=== PATIENT | female | born 1945 | race Caucasian/White ===

== ENCOUNTER 2018-07-01 09:50 | Day surgery (SDC) | payer MEDICARE ==
[2018-06-26 10:00] VITALS: BMI 26.4
[~2018-07-01 09:50] MED LIST: LACTATED RINGERS 1,000 ML IV SCH; LIDOCAINE 1% 20 ML VIAL (10MG/ML) FOR IV START INTRADERMA PRN
[2018-07-01 10:07] VITALS: TEMP 97.8
[2018-07-01] MEDS ORDERED: LACTATED RINGERS 1,000 ML IV ONE (10:09)
[2018-07-01] MEDS ORDERED: PROPOFOL 10 MG/ML 20 ML VIAL IV ONE (11:21)
--- NOTE | 2018-07-01 11:43 | P.PCN ---
Date of Procedure: 07/01/18 Procedure(s) Performed: Brief history: Patient is a pleasant 73-year-old white female scheduled for an elective upper endoscopy as well as colonoscopy as a part of evaluation of iron deficiency anemia. Recently she was noted to have a hemoglobin of 7.9 g/dL and iron indices consistent with iron deficiency anemia. She is been complaining of intermittent rectal bleeding for the last few weeks. Procedure performed: Esophagogastroduodenoscopy with biopsy Colonoscopy with biopsy and the tattooing with Priyanka ink Preoperative diagnosis: Iron deficiency anemia Anesthesia: MAC Procedure: After informed consent was obtained from the patient was brought into the endoscopy unit and IV sedation was administered by anesthesia under continuous monitoring. Initially upper endoscopy was done. The Olympus GF 160 video endoscope was inserted inserted into the mouth and esophagus intubated without any difficulty and was gradually advanced into the stomach and duodenum and carefully examined. The bulb and second part of the duodenum appeared normal. The scope was then withdrawn into the stomach adequately insufflated with air and upon careful examination the antrum had multiple scattered erosions consistent with gastritis and biopsies were done from this area. The body, cardia and fundus appeared normal. The scope was then withdrawn into the esophagus. The GE junction was located at 40 cm to the incisors. It appeared reguwith 2 superficial erosions consistent with LA grade a reflux esoph agitis.est of the esophagus appeared normal. Patient tolerated the procedure well. At this time the patient continued to remain sedation. Initial digital rectal examination was normal. Olympus CF 160 video colonoscope was then inserted into the rectum and gradually advanced to the cecum without any difficulty. Careful examination was performed as the scope was gradually being withdrawn. The prep was excellent. The cecum, appeared normal. In the mid ascending colon there was a semicircumferential ulcerated mass that was biopsied and Priyanka ink was injected for tattooing in the distal part of the mass. The rest of the ascending colon, transverse colon, descending colon, sigmoid colon and rectum appeared normal. Retroflexion was performed in the rectum and no lesions were noted. Patient tolerated the procedure well. Impression: 1. Upper endoscopy revealed antral erosive gastritis and mild esophagitis 2. Colonoscopy revealed a semicircumferential ulcerated mass in the mid asce nding colon status post biopsies and tattooing with Priyanka ink. Rest of the colon appeared normal Recommendations: Findings of this examination were discussed with the patient as well as a family. She was advised to follow with the biopsy results. She will be seen in office in 3-4 days.
[2018-07-01 11:53] VITALS: RESP 16
[2018-07-01 12:14] VITALS: BP 113/67; PULSE 97
== END 2018-07-01 12:54 | disposition home or self-care (01) ==
LOC: ORWHC2ENDO 09:50
PROVIDERS: ATTEND Internal Medicine Gastroenterology
DX: C18.2 Malignant neoplasm of ascending colon (principal); K29.50 Unspecified chronic gastritis without bleeding; K20.9 Esophagitis, unspecified; I10 Essential (primary) hypertension; Z79.899 Other long term (current) drug therapy; Z88.0 Allergy status to penicillin; Z88.2 Allergy status to sulfonamides
CPT/HCPCS: 88305; 45380; 43239; 45381; J2704; 44404

== ENCOUNTER → 2018-07-03 | Outpatient (CLI) | payer MEDICARE ==
[2018-07-03 10:49] LABS: Blood Urea Nitrogen 11 mg/dL (7-17)
--- NOTE | 2018-07-03 12:28 | CT ---
EXAMINATION TYPE: CT abdomen pelvis w con DATE OF EXAM: 07/03/2018 COMPARISON: None HISTORY: Colon mass. pain. CT DLP: 515.3 mGycm CONTRAST: CT scan of the abdomen and pelvis is performed with Oral Contrast and with IV Contrast, patient injec francisco with 100 mL of Isovue 300. FINDINGS: LUNG BASES-: No visible nodule. No infiltrate. LIVER/GB: No calcified gallstones. 2 hypoattenuating lesions measuring less than 1 cm left hepatic lobe may reflect cysts although are too small to characterize. No definite solid hepatic lesions. Akil iary tree is of normal caliber. PANCREAS: No inflammation. No distinct mass. SPLEEN: No splenic enlargement. No lesion seen. ADRENALS: No nodule. No thickening. KIDNEYS/BLADDER: No hydronephrosis. No nephrolithiasis. No distinct renal mass. Urinary bladder g rossly unremarkable. BOWEL: Normal appendix. Normal bowel caliber. No inflammation. There is masslike density noted with in the cecum direct visualization is recommended to exclude malignancy. Small hiatal hernia. GENITAL ORGANS: No gross abnormality. LYMPH NODES: No greater than 1cm abdominal or pelvic lymph nodes are appreciated. AORTA: No significant abnormality. OSSEOUS STRUCTURES: No significant abnormality is seen. OTHER: No significant additional abnormality is seen. IMPRESSION: 1. There is masslike density noted within the cecum direct visualization is recommended to exclude ma lignancy.
== END | disposition home or self-care (01) ==
LOC: RADCTMAIN 09:51
PROVIDERS: ATTEND Internal Medicine Gastroenterology
DX: R19.09 Other intra-abdominal and pelvic swelling, mass and lump (principal)
CPT/HCPCS: 82565; 84520; 74177; 36415; Q9967

== ENCOUNTER → 2018-07-07 | Outpatient (CLI) | payer MEDICARE ==
[2018-07-07 17:56] LABS: Anisocytosis Slight; HCT 25.8 % (34.0-46.0); HGB 7.4 gm/dL (11.4-16.0); Hypochromasia Marked; MCH 21.3 pg (25.0-35.0); MCHC 28.6 g/dL (31.0-37.0); MCV 74.6 fL (80.0-100.0); Mean Platelet Volume 6.5; Microcytosis Slight; Platelet Count 376 k/uL (150-450); Poikilocytosis Slight; RBC 3.46 m/uL (3.80-5.40); WBC 7.4 k/uL (3.8-10.6)
[2018-07-07 18:14] LABS: Potassium 4.2 mmol/L (3.5-5.1)
== END ==
LOC: LABPAT 16:48
PROVIDERS: ATTEND Surgery
DX: Z01.818 Encounter for other preprocedural examination (principal); Z01.812 Encounter for preprocedural laboratory examination; C18.9 Malignant neoplasm of colon, unspecified
CPT/HCPCS: 36415; 80051; 85027; 86850; 86900; 86901; 93005

== ENCOUNTER 2018-07-17 09:17 | Inpatient (IN) | payer MEDICARE ==
[2018-07-14 15:59] VITALS: BMI 26.9
[~2018-07-17 09:17] MED LIST changes: +CLINDAMYCIN 900 MG in DEXTROSE 5% IN WATER 50 ML IVPB ONE; +GENTAMICIN 300 MG in SODIUM CHLORIDE 0.9% 100 ML IVPB ONE; +HEPARIN SODIUM,PORCINE 5,000 UNIT/ML 1 ML VIAL SQ ONE; -LACTATED RINGERS 1,000 ML IV SCH; -LIDOCAINE 1% 20 ML VIAL (10MG/ML) FOR IV START INTRADERMA PRN
[2018-07-17] MEDS ORDERED: LACTATED RINGERS 1,000 ML IV ONE ×3 (10:17→16:12)
[2018-07-17] MEDS ORDERED: ONDANSETRON 4 MG/2 ML VIAL IVP ONE (10:17)
[2018-07-17] MEDS ORDERED: DEXAMETHASONE SOD PHOSPHATE 10 MG/ML 1 ML VIAL IV ONE (10:18)
[2018-07-17 10:37] LABS: Anisocytosis Slight; Basophils # (A) 0.1 k/uL (0-0.2); Basophils % (A) 1 %; Eosinophils # (A) 0.2 k/uL (0-0.7); Eosinophils % (A) 2 %; HCT 32.2 % (34.0-46.0); Hypochromasia Marked; Lymphocytes # (A) 1.1 k/uL (1.0-4.8); Lymphocytes % (A) 15 %; MCH 21.8 pg (25.0-35.0); MCHC 28.9 g/dL (31.0-37.0); MCV 75.6 fL (80.0-100.0); Mean Platelet Volume 7.1; Microcytosis Slight; Monocytes # (A) 0.5 k/uL (0-1.0); Monocytes % (A) 7 %; Neutrophils # (A) 5.1 k/uL (1.3-7.7); Neutrophils % (A) 70 %; Platelet Count 426 k/uL (150-450); Poikilocytosis Slight; RBC 4.26 m/uL (3.80-5.40); RDW 17.3 % (11.5-15.5); WBC 7.2 k/uL (3.8-10.6)
[2018-07-17 10:40] LABS: HGB 9.3 gm/dL (11.4-16.0)
--- NOTE | 2018-07-17 13:04 | P.GSHP ---
History of Present Illness H&P Date: 07/17/18 Chief Complaint: Right colon cancer This is a 73-year-old female who was recently diagnosed with right colon cancer. Patient presents today for laparoscopic right colectomy. Patient's rhythm risks of surgery including possible colostomy and anastomotic leak Past Medical History Past Medical History: Cancer, Hypertension Additional Past Medical History / Comment(s): IRON DEFICIENCY ANEMIA, STATES CANCER MASS IN COLON., HX BLOOD IN STOOL. History of Any Multi-Drug Resistant Organisms: None Reported Past Surgical History: Appendectomy, Hysterectomy, Orthopedic Surgery, Tonsillectomy Additional Past Surgical History / Comment(s): HIP SURGERY AGE 12 R/T OSTEOMYELITIS., TUBAL SURGERY., VARICOSE VEINS. Past Anesthesia/Blood Transfusion Reactions: Postoperative Nausea & Vomiting (PONV) Additional Past Anesthesia/Blood Transfusion Reaction / Comment(s): HX OF BLOOD TRANSFUSION WITH TUBAL - NO REACTION. SISTER = PONV Past Psychological History: No Psychological Hx Reported Smoking Status: Never smoker Past Alcohol Use History: None Reported Past Drug Use History: None Reported - Past Family History Mother Family Medical History: Cancer Additional Family Medical History / Comment(s): BREAST CANCER Father Family Medical History: Cancer Additional Family Medical History / Comment(s): PROSTATE CANCER WITH BONE METS. Sister(s) Family Medical History: Cancer Additional Family Medical History / Comment(s): BREAST CANCER Medications and Allergies Home Medications Medication Instructions Recorded Confirmed Type Multivitamins, Thera [Multivitamin 1 tab PO DAILY 06/26/18 07/17/18 History (formulary)] amLODIPine [Norvasc] 5 mg PO BID 06/26/18 07/17/18 History Ferrous Sulfate [Iron] 325 mg PO DAILY 07/14/18 07/17/18 History Allergies Allergy/AdvReac Type Severity Reaction Status Date / Time Penicillins Allergy Swelling Verified 07/17/18 09:54 Sulfa (Sulfonamide Allergy Unknown Verified 07/17/18 09:54 Antibiotics) Surgical - Exam Vital Signs Temp Pulse Resp BP Pulse Ox 98.3 F 109 H 16 184/74 98 07/17/18 10:16 07/17/18 10:16 07/17/18 10:16 07/17/18 10:16 07/17/18 10:16 - General well developed, well nourished, no distress - Eyes PERRL - ENT normal pinna - Neck no masses - Respiratory normal expansion - Cardiovascular Rhythm: regular - Abdomen Abdomen: soft, non tender Results - Labs 07/17/18 10:13 07/17/18 10:13 Abnormal Lab Results - Last 24 Hours (Table) 07/17/18 Range/Units 10:13 Hgb 9.3 L D (11.4-16.0) gm/dL Hct 32.2 L (34.0-46.0) % MCV 75.6 L (80.0-100.0) fL MCH 21.8 L (25.0-35.0) pg MCHC 28.9 L (31.0-37.0) g/dL RDW 17.3 H (11.5-15.5) % Diabetes panel 07/17/18 Range/Units 10:13 Potassium 4.0 (3.5-5.1) mmol/L Pituitary panel 07/17/18 Range/Units 10:13 Potassium 4.0 (3.5-5.1) mmol/L Adrenal panel 07/17/18 Range/Units 10:13 Potassium 4.0 (3.5-5.1) mmol/L Assessment and Plan Assessment: Right colon cancer. We will perform laparoscopic right colectomy.
[2018-07-17] MEDS ORDERED: PROPOFOL 10 MG/ML 20 ML VIAL IV ONE (13:55)
[2018-07-17] MEDS ORDERED: GLYCOPYRROLATE 0.2 MG/ML 2 ML VIAL ONE (13:55)
[2018-07-17] MEDS ORDERED: SUCCINYLCHOLINE CHLORIDE 100 MG/5 ML SYR IV ONE (13:55)
[2018-07-17] MEDS ORDERED: ROCURONIUM BROMIDE 10 MG/ML 10 ML VIAL IV ONE (13:55)
[2018-07-17] MEDS ORDERED: MORPHINE SULFATE 10 MG/ML SYRINGE ONE (13:55)
[2018-07-17] MEDS ORDERED: NEOSTIGMINE 1 MG/ML 10 ML VIAL ONE (13:55)
[2018-07-17] MEDS ORDERED: LIDOCAINE 1% INJ 10MG/ML (20 ML MDV) ONE (13:55)
[2018-07-17] MEDS ORDERED: ePHEDrine SULFATE/0.9% NACL/PF 50 MG/5 ML SYRINGE IV ONE (13:55)
[2018-07-17] MEDS ORDERED: fentaNYL (PF) 50 MCG/ML 2 ML AMP ONE (13:55)
[2018-07-17] MEDS ORDERED: MIDAZOLAM 2 MG/2 ML VIAL ONE (13:55)
[2018-07-17] MEDS ORDERED: BUPIVACAIN-EPI 0.5%-1:200,000 30 ML VIAL SQ ONE (14:17)
[2018-07-17] MEDS ORDERED: METOCLOPRAMIDE 5 MG/ML 2 ML VIAL IVP PRN (15:21)
[2018-07-17] MEDS ORDERED: ONDANSETRON 4 MG/2 ML VIAL IVP PRN (15:21)
[2018-07-17] MEDS ORDERED: BENZOCAINE/MENTHOL LOZENG 1 EACH LOZENGE MUCOUS MEM PRN (15:21)
[2018-07-17] MEDS ORDERED: HYDROmorphone 1 MG/ML 1 ML SYRINGE IVP PRN (15:21)
--- NOTE | 2018-07-17 15:21 | P.OP ---
Date of Procedure: 07/17/18 Preoperative Diagnosis: Right colon cancer Postoperative Diagnosis: Right colon cancer Extensive adhesions Procedure(s) Performed: Diagnostic laparoscopy Right colectomy Extensive lysis of adhesions Partial omentectomy Anesthesia: TEO Surgeon: Rigoberto Boyce Estimated Blood Loss (ml): 40 Pathology: other (Right colon, omentum) Condition: stable Disposition: PACU Description of Procedure: The patient's placed on the operative table in the supine position. She received general anesthesia. Her abdomen was prepped and draped in usual sterile fashion. A Veress needle was placed in the left upper quadrant and then the abdomen was insufflated after adequate insufflation a 5 mm trocar was placed in the supraumbilical position. The patient had a previous low midline incision. The camera was placed through the laparoscope. There adhesions noted in the right lower quadrant and along the low midline incision. The adhesions were quite extensive. At this point decided to perform an open right colectomy. The trochars withdrawn. A periumbilical midline incision was made. And then using with cautery the abdominal wall was divided. Approximately 20 minutes of operative time used to lyse adhesions. The right colon was mobilized. The colon cancer was visualized just proximal to the tattoo roseamrie on the colon. There were adhesions in the pelvis attached to the small bowel. These were lysed with sharp dissection. The terminal ileum and right colon was fully mobilized. At this point the terminal ileum was transected with a GI stapler and then the transverse colon was transected with a GI stapler. Using the Enseal device the mesentery of the bowel was divided. A portion of omentum was also transected and sent to pathology. A [id number] functional end-to-end staple anastomosis was then created using the CHYNA and TA stapler. 3-0 GI silk sutures placed as a crotch stitch. The abdomen was irrigated there is no bleeding seen. The fascia was closed in looped #1 PDS suture. Skin was closed marcella. Silverlon dressing was applied. Patient top she will was sent to recovery in stable condition.
[2018-07-17] MEDS: HYDROmorphone 1 MG/ML 1 ML SYRINGE IVP ONE ×2 (15:28→15:34)
[2018-07-17] MEDS: D5-0.45% NACL WITH KCL 20MEQ/L 1,000 ML IV SCH ×2 (17:02→20:27)
[2018-07-17] MEDS: FAMOTIDINE 20 MG/2 ML VIAL IV SCH (20:27)
[2018-07-18] MEDS: PANTOPRAZOLE 40 MG/10 ML VIAL IVP SCH ×3 (04:18→22:24)
[2018-07-18] MEDS: D5-0.45% NACL WITH KCL 20MEQ/L 1,000 ML IV SCH ×3 (04:26→22:17)
[2018-07-18 07:38] LABS: African American GFR (CKD) >90 (>60 ml/min/1.73 sqM); Anion Gap 6 mmol/L; Blood Urea Nitrogen 9 mg/dL (7-17); Calcium 9.3 mg/dL (8.4-10.2); Carbon Dioxide 22 mmol/L (22-30); Chloride 109 mmol/L (98-107); Glucose 139 mg/dL (74-99); Potassium 4.7 mmol/L (3.5-5.1); Sodium 137 mmol/L (137-145)
[2018-07-18 07:54] LABS: Anisocytosis Slight; Basophils % (A) 0 %; Eosinophils % (A) 0 %; HCT 27.5 % (34.0-46.0); Hypochromasia Marked; Lymphocytes # (A) 0.7 k/uL (1.0-4.8); Lymphocytes % (A) 4 %; MCH 21.7 pg (25.0-35.0); MCHC 28.2 g/dL (31.0-37.0); Mean Platelet Volume 6.7; Microcytosis Slight; Monocytes # (A) 0.8 k/uL (0-1.0); Monocytes % (A) 5 %; Neutrophils % (A) 89 %; Platelet Count 302 k/uL (150-450); RBC 3.57 m/uL (3.80-5.40); RDW 17.1 % (11.5-15.5); WBC 14.6 k/uL (3.8-10.6)
[2018-07-18 08:00] LABS: HGB 7.8 gm/dL (11.4-16.0)
--- NOTE | 2018-07-18 08:07 | P.OP ---
Date of Procedure: 07/17/18
[2018-07-18] MEDS: ALVIMOPAN 12 MG CAPSULE PO SCH ×2 (08:38→22:17)
[2018-07-18] MEDS: amLODIPine 5 MG TAB PO SCH ×2 (08:38→22:17)
[2018-07-18] MEDS: HEPARIN SODIUM,PORCINE 5,000 UNIT/ML 1 ML VIAL SQ SCH ×2 (08:38→22:17)
[2018-07-18] MEDS: FAMOTIDINE 20 MG/2 ML VIAL IV SCH (08:38)
--- NOTE | 2018-07-18 09:02 | P.PN ---
Subjective Progress Note Date: 07/18/18 Principal diagnosis: Right colon cancer The patient status post diagnostic laparoscopy with right colectomy lysis of adhesions for right colon cancer. She's doing quite well. She has minimal pain. Objective - Vital Signs Vital signs: Vital Signs Temp 98.4 F 07/18/18 07:32 Pulse 81 07/18/18 07:32 Resp 15 07/18/18 07:32 BP 126/58 07/18/18 07:32 Pulse Ox 100 07/18/18 07:32 Intake & Output 07/17/18 07/18/18 07/18/18 18:59 06:59 18:59 Intake Total 2000 1500 Output Total 130 2150 Balance 1870 -650 Intake: IV 2000 Intake, IV Titration 1300 Amount D5-0.45% NaCl with KCl 1300 20Meq/l 1,000 ml @ 125 mls/hr IV .Q8H [facility] Rx#: [id number] Oral 200 Output: Urine 100 2150 Estimated Blood Loss 30 Other: Voiding Method Indwelling Catheter Indwelling Catheter - Constitutional General appearance: Present: average body habitus, cooperative - Cardiovascular Rhythm: regular - Gastrointestinal Gastrointestinal Comment(s): Abdomen soft. Incision site is clean dry intact. - Labs CBC & Chem 7: 07/18/18 06:31 07/18/18 06:31 Labs: Abnormal Lab Results - Last 24 Hours (Table) 07/17/18 07/18/18 07/18/18 Range/Units 10:13 06:31 06:31 WBC 14.6 H (3.8-10.6) k/uL RBC 3.57 L (3.80-5.40) m/uL Hgb 9.3 L D 7.8 L D (11.4-16.0) gm/dL Hct 32.2 L 27.5 L (34.0-46.0) % MCV 75.6 L 77.0 L (80.0-100.0) fL MCH 21.8 L 21.7 L (25.0-35.0) pg MCHC 28.9 L 28.2 L (31.0-37.0) g/dL RDW 17.3 H 17.1 H (11.5-15.5) % Neutrophils # 13.0 H (1.3-7.7) k/uL Lymphocytes # 0.7 L (1.0-4.8) k/uL Chloride 109 H (98-107) mmol/L Glucose 139 H (74-99) mg/dL Assessment and Plan Plan: Status post right colectomy. Patient is doing quite well. She will have her diet advanced once she has return of her bowel function.
--- NOTE | 2018-07-18 13:04 | CONS ---
CONSULTATION DATE OF SERVICE: 07/17/2018 REASON FOR CONSULTATION: Advice regarding hypertension and other multiple medical issues requested by Dr. Boyce. HISTORY OF PRESENT ILLNESS: This 73-year-old woman with a past medical history of hypertension, iron deficiency anemia, history of appendectomy, history of hysterectomy, history of DJD being followed by Dr. Haynes in the outpatient setting underwent diagnostic laparoscopy, right colectomy, extensive lysis of adhesions, partial omentectomy for right colon cancer and extensive adhesions. The patient tolerated the procedure. Patient complains of some nausea. There is no history of fever, rigors. No history of headache, loss of consciousness, seizures. PAST MEDICAL HISTORY: History of hypertension, history iron deficiency anemia, appendectomy, hysterectomy. MEDICATIONS: Medications prior to admission include home medications are: 1. Norvasc 5 mg p.o. b.i.d. 2. Multivitamins 1 p.o. daily. 3. Iron 325 mg p.o. daily. ALLERGIES: Allergies are PENICILLIN, SULFA. FAMILY HISTORY: History of breast cancer in the family. SOCIAL HISTORY: No history of smoking. No history of alcohol intake. REVIEW OF SYSTEMS: ENT: No diminished hearing or diminished vision. CARDIOVASCULAR SYSTEM: No angina. RESPIRATORY SYSTEM: As mentioned earlier. GI: No nausea. : No dysuria. NERVOUS SYSTEM: No numbness or weakness. ALLERGY/IMMUNOLOGY: No asthma or hayfever. MUSCULOSKELETAL: As mentioned earlier. HEMATOLOGY/ONCOLOGY: No history of anemia. ENDOCRINE: No history of diabetes mellitus or hypothyroidism. CONSTITUTIONAL: As mentioned earlier. DERMATOLOGY: Negative. RHEUMATOLOGY: Negative. PSYCHIATRY: As mentioned earlier. PHYSICAL EXAMINATION: The patient is alert and oriented x3. Pulse is 82, blood pressure 113/73, respirations 16, temperature 98 degrees, pulse ox 95% on 2 L. HEENT: Conjunctivae normal. Oral mucosa moist. NECK: No jugular venous distention. No carotid bruit. No lymph node enlargement. CARDIOVASCULAR: S1, S2 muffled. RESPIRATION: Breath sounds diminished at the bases. No rhonchi, no crackles. ABDOMEN: Soft, status post surgery. LEGS: No edema. No swelling. NERVOUS SYSTEM: Higher function as mentioned earlier. Moves all 4 limbs. No focal motor deficits. LYMPHATICS: No lymphadenopathy of the neck, axillae or groin. SKIN: No ulcer, rash or bleeding. JOINTS: No active deforming arthropathy. LABS: WBC 7.2, hemoglobin 9.3. ASSESSMENT: 1. Diagnostic laparoscopy, right colectomy, extensive lysis of adhesions for right colon cancer and extensive adhesions. 2. Iron deficiency anemia, present on admission. 3. Hypertension. 4. History of hysterectomy. 5. History of degenerative joint disease. 6. History of postoperative nausea, vomiting. 7. FULL CODE. RECOMMENDATIONS AND DISCUSSION: In this 73-year-old woman who presented with multiple medical issues, at this time I recommend to continue current medications and continue symptomatic treatment. I recommend resume the home medications and symptomatic treatment for the nausea. Otherwise, DVT prophylaxis and incentive spirometry. Will follow the patient closely with you. Thank you, Dr. Boyce, for letting us participate in the care of this patient. MMGREGL / AILYNN: [id number] /
[2018-07-18] MEDS: KETOROLAC 30 MG/ML 1 ML VIAL IVP PRN (18:00)
[2018-07-18 18:16] LABS: Appearance,Urine Clear (Clear); Bilirubin,Urine Negative (Negative); Blood,Urine Negative (Negative); Color,Urine Colorless; Glucose,Urine (UA) Negative (Negative); Ketones,Urine Negative (Negative); Leukocyte Esterase,Urine Negative (Negative); Nitrite,Urine Negative (Negative); PH, Urine 6.5 (5.0-8.0); Protein,Urine Negative (Negative); Specific Gravity,Urine 1.002 (1.001-1.035); Urobilinogen,Urine <2.0 mg/dL (<2.0)
--- NOTE | 2018-07-18 21:25 | PN ---
PROGRESS NOTE DATE OF SERVICE: 07/18/2018 This 73-year-old woman who was admitted after laparoscopic right colectomy is improving significantly. No chest pain. No palpitations. No fever. Dr. Boyce is following the patient closely. EXAM: Alert and oriented x3. Pulse 83. Blood pressure 116/52, respiration 16, temperature 98.2. Pulse ox 100 percent on 2 L. HEENT: Conjunctivae normal. Oral mucosa moist. NECK is no jugular venous distention. No carotid bruit. No lymph node enlargement. CARDIOVASCULAR: S1, S2 muffled. RESPIRATORY: Breath sounds diminished in the bases. No rhonchi. No crackles. ABDOMEN: Soft, status post surgery. LEGS are no edema, no swelling. CENTRAL NERVOUS SYSTEM: No focal deficits. LABS: WBC 14.6, hemoglobin 7.8, other labs are noted. ASSESSMENT: 1. Status post laparoscopic right colectomy, extensive lysis of adhesions, right colon cancer with extensive adhesions. 2. Iron deficiency anemia, present on admission. 3. Increased WBC possibly reactive. 4. Hypertension. 5. History of hysterectomy. 6. History of degenerative joint disease. 7. History of postoperative nausea and vomiting. 8. FULL CODE. RECOMMENDATIONS AND DISCUSSION: Recommend to continue current medications, management and symptomatic treatment. Otherwise, at this time, we recommend incentive spirometry. DVT prophylaxis. Closely monitor with Surgery. I would also recommend UA to complete the workup as well. We will continue to monitor. Further recommendations to follow. MMODL / IJN: [id number] /
[2018-07-19 07:20] LABS: Anisocytosis Slight; Basophils % (A) 0 %; Eosinophils # (A) 0.1 k/uL (0-0.7); Eosinophils % (A) 1 %; HCT 30.5 % (34.0-46.0); HGB 8.8 gm/dL (11.4-16.0); Hypochromasia Marked; Lymphocytes # (A) 1.1 k/uL (1.0-4.8); Lymphocytes % (A) 9 %; MCH 22.4 pg (25.0-35.0); MCV 77.1 fL (80.0-100.0); Mean Platelet Volume 7.2; Microcytosis Slight; Monocytes # (A) 0.7 k/uL (0-1.0); Monocytes % (A) 5 %; Neutrophils # (A) 10.3 k/uL (1.3-7.7); Neutrophils % (A) 83 %; Platelet Count 348 k/uL (150-450); RBC 3.95 m/uL (3.80-5.40); RDW 17.2 % (11.5-15.5); WBC 12.4 k/uL (3.8-10.6)
[2018-07-19 07:45] LABS: African American GFR (CKD) >90 (>60 ml/min/1.73 sqM); Anion Gap 5 mmol/L; Blood Urea Nitrogen 8 mg/dL (7-17); Calcium 9.4 mg/dL (8.4-10.2); Carbon Dioxide 28 mmol/L (22-30); Chloride 107 mmol/L (98-107); Glucose 100 mg/dL (74-99); Potassium 4.1 mmol/L (3.5-5.1); Sodium 140 mmol/L (137-145)
[2018-07-19] MEDS: D5-0.45% NACL WITH KCL 20MEQ/L 1,000 ML IV SCH ×2 (08:12→21:54)
[2018-07-19] MEDS: ALVIMOPAN 12 MG CAPSULE PO SCH ×2 (08:13→21:53)
[2018-07-19] MEDS: amLODIPine 5 MG TAB PO SCH ×2 (08:13→21:53)
[2018-07-19] MEDS: PANTOPRAZOLE 40 MG/10 ML VIAL IVP SCH (08:13)
[2018-07-19] MEDS: HEPARIN SODIUM,PORCINE 5,000 UNIT/ML 1 ML VIAL SQ SCH ×2 (08:14→21:53)
[2018-07-19] MEDS: KETOROLAC 30 MG/ML 1 ML VIAL IVP PRN ×3 (08:14→21:53)
--- NOTE | 2018-07-19 11:14 | P.PN ---
Progress Note - Text Progress Note Date: 07/19/18 Postoperative day 2 Patient is doing well. She's had a small amount of flatus. On exam her vital signs are stable. Her abdomen soft. Incision site is clean dry and intact. Status post right colectomy for colon cancer. Patient will have her diet advanced.
[2018-07-19] MEDS: PANTOPRAZOLE 40 MG TABLET PO SCH (18:13)
--- NOTE | 2018-07-19 21:54 | PN ---
PROGRESS NOTE DATE OF SERVICE: 07/19/2018 This 73-year-old woman who was admitted after laparoscopic right colectomy is improving significantly. No chest pain. No palpitations. No fever. Dr. Boyce is following the patient closely. EXAM: Alert and oriented x3. Pulse is 94, blood pressure 140/69, respiration 18, temperature 97.5. HEENT: Conjunctivae normal. Oral mucosa moist. NECK: No jugular venous distention. No lymph node enlargement. CARDIOVASCULAR: S1, S2. RESPIRATORY: Diminished breath sounds at the bases. No rhonchi, no crackles. ABDOMEN: Soft, nontender. LEGS: No swelling. NERVOUS SYSTEM: No focal deficits. LAB STUDIES: WBC 12.2, hemoglobin is 8.8, ( ) normal. ASSESSMENT: 1. Status post laparoscopic right colectomy, extensive lysis of adhesions, right colon cancer with extensive adhesions. 2. Iron deficient anemia, present on admission. 3. Increased WBC, possibly reactive. 4. Hypertension. 5. History hysterectomy. 6. History of degenerative joint disease. 7. History of postoperative nausea, vomiting. 8. FULL CODE. RECOMMENDATIONS AND DISCUSSION: I recommend to continue current medications, continue to monitor, continue symptomatic treatment. Otherwise, at this time we will monitor the patient closely. Incentive spirometry. DVT prophylaxis. Closely follow with Dr. Boyce. Further recommendations to follow. MMODL / IJN: [id number] /
[2018-07-20] MEDS: HEPARIN SODIUM,PORCINE 5,000 UNIT/ML 1 ML VIAL SQ SCH ×2 (08:14→20:30)
[2018-07-20] MEDS: ALVIMOPAN 12 MG CAPSULE PO SCH ×2 (08:14→20:29)
[2018-07-20] MEDS: amLODIPine 5 MG TAB PO SCH ×2 (08:14→20:30)
[2018-07-20] MEDS: PANTOPRAZOLE 40 MG TABLET PO SCH ×2 (08:14→18:16)
[2018-07-20] MEDS: D5-0.45% NACL WITH KCL 20MEQ/L 1,000 ML IV SCH ×2 (08:15)
[2018-07-20] MEDS ORDERED: ACETAMINOPHEN TAB 325 MG TAB PO PRN (09:24)
[2018-07-20 10:46] LABS: Anisocytosis Slight; Basophils # (A) 0.1 k/uL (0-0.2); Basophils % (A) 1 %; Eosinophils # (A) 0.3 k/uL (0-0.7); Eosinophils % (A) 3 %; HCT 34.7 % (34.0-46.0); HGB 9.7 gm/dL (11.4-16.0); Hypochromasia Marked; Lymphocytes # (A) 1.1 k/uL (1.0-4.8); Lymphocytes % (A) 10 %; MCH 21.9 pg (25.0-35.0); Mean Platelet Volume 6.8; Microcytosis Slight; Monocytes # (A) 0.7 k/uL (0-1.0); Monocytes % (A) 6 %; Neutrophils # (A) 8.7 k/uL (1.3-7.7); Neutrophils % (A) 79 %; Platelet Count 390 k/uL (150-450); RBC 4.45 m/uL (3.80-5.40); RDW 16.7 % (11.5-15.5)
--- NOTE | 2018-07-20 11:50 | P.PN ---
Subjective Progress Note Date: 07/20/18 CHIEF COMPLAINT: Colon cancer HISTORY OF PRESENT ILLNESS: 73-year-old female who is status post right colectomy, lysis of adhesions, and partial omentectomy. POD #3. Patient states her pain is tolerable. She denies nausea or vomiting. Tolerating full liquid diet. Reports passing flatus and having a bowel movement yesterday and overnight. WBC 11.0. PHYSICAL EXAM: VITAL SIGNS: Reviewed. GENERAL: Well-developed in no acute distress. HEENT: No sclera icterus. Extraocular movements grossly intact. Moist buccal mucosa. Head is atraumatic, normocephalic. ABDOMEN: Soft. Nondistended. Nontender. Dressing clean dry intact with small s hadowing present. Abdominal binder intact. NEUROLOGIC: Alert and oriented. Cranial nerves II through XII grossly intact. ASSESSMENT: 1. Colon cancer, s/p right colectomy PLAN: 1. Pain control. Will begin PO medications 2. Activity as tolerated 3. Incentive spirometry 4. Advance diet 5. Monitor WBC 6. Anticipate discharge home tomorrow morning Nurse practitioner note has been reviewed by physician. Signing provider agrees with the documented findings, assessment, and plan of care. Objective - Vital Signs Vital signs: Vital Signs Temp 98.1 F 07/20/18 07:40 Pulse 91 07/20/18 07:40 Resp 16 07/20/18 01:08 BP 145/63 07/20/18 07:40 Pulse Ox 98 07/20/18 07:40 Intake & Output 07/19/18 07/20/18 07/20/18 18:59 06:59 18:59 Intake Total 1365 Output Total 1700 Balance -335 Intake: Intake, IV Titration 875 Amount D5-0.45% NaCl with KCl 875 20Meq/l 1,000 ml @ 125 mls/hr IV .Q8H [facility] Rx#: [id number] Oral 490 Output: Urine 1700 Other: Voiding Method Indwelling Catheter Toilet # Voids 1 - Labs CBC & Chem 7: 07/20/18 09:58 07/19/18 06:45 Labs: Abnormal Lab Results - Last 24 Hours (Table) 07/20/18 Range/Units 09:58 WBC 11.0 H (3.8-10.6) k/uL Hgb 9.7 L (11.4-16.0) gm/dL MCV 78.0 L (80.0-100.0) fL MCH 21.9 L (25.0-35.0) pg MCHC 28.0 L (31.0-37.0) g/dL RDW 16.7 H (11.5-15.5) % Neutrophils # 8.7 H (1.3-7.7) k/uL
[2018-07-20] MEDS: HYDROcodone/APAP 5-325MG 1 EACH TAB PO PRN ×2 (14:44→20:29)
--- NOTE | 2018-07-20 22:13 | PN ---
PROGRESS NOTE DATE OF SERVICE: 07/20/2018 This 73-year-old woman admitted after laparoscopic colectomy is being closely monitored. No chest pain. No palpitations. No fever. EXAM: Alert and oriented x2. Pulse is 103. Blood pressure 128/70, respiratory 20, temperature 98.8, pulse ox 98% on room air. HEENT: Conjunctivae normal. NECK: No jugular venous distention. CARDIOVASCULAR: S1, S2 muffled. RESPIRATORY: Breath sounds diminished in the bases. Bilateral scattered rhonchi and crackles. ABDOMEN: Soft, status post surgery. LEGS are no edema. No swelling. CENTRAL NERVOUS SYSTEM: No focal deficits. LABORATORY DATA: WBC 11, hemoglobin is 10.7. ASSESSMENT: 1. Status post laparoscopic right colectomy. 2. Lysis of adhesions, right colon cancer for extensive adhesions. 3. Iron deficiency anemia, present on admission. 4. Increased WBC, possibly reactive. 5. Hypertension. 6. History of hysterectomy. 7. History of degenerative joint disease. 8. History of postoperative nausea and vomiting. 9. FULL CODE. RECOMMENDATIONS AND DISCUSSION: Continue current medications, management and symptomatic treatment. DVT prophylaxis. Continue the incentive spirometry. Continue the rest of medications. Closely follow with surgery. Further recommendations to follow. MMODL / IJN: [id number] /
[2018-07-21 02:14] VITALS: RESP 16
[2018-07-21] MEDS: D5-0.45% NACL WITH KCL 20MEQ/L 1,000 ML IV SCH ×2 (06:53→07:57)
[2018-07-21 07:49] LABS: Anisocytosis Slight; Basophils % (A) 1 %; Eosinophils # (A) 0.4 k/uL (0-0.7); Eosinophils % (A) 6 %; HCT 33.8 % (34.0-46.0); HGB 9.5 gm/dL (11.4-16.0); Hypochromasia Marked; Lymphocytes # (A) 1.2 k/uL (1.0-4.8); Lymphocytes % (A) 18 %; MCH 21.4 pg (25.0-35.0); MCV 76.7 fL (80.0-100.0); Mean Platelet Volume 7.1; Microcytosis Slight; Monocytes # (A) 0.4 k/uL (0-1.0); Monocytes % (A) 6 %; Neutrophils # (A) 4.8 k/uL (1.3-7.7); Neutrophils % (A) 68 %; Platelet Count 382 k/uL (150-450); RBC 4.41 m/uL (3.80-5.40); RDW 16.5 % (11.5-15.5); WBC 7.1 k/uL (3.8-10.6)
[2018-07-21] MEDS: HEPARIN SODIUM,PORCINE 5,000 UNIT/ML 1 ML VIAL SQ SCH (07:56)
[2018-07-21] MEDS: PANTOPRAZOLE 40 MG TABLET PO SCH (07:56)
[2018-07-21] MEDS: ALVIMOPAN 12 MG CAPSULE PO SCH (07:56)
[2018-07-21] MEDS: amLODIPine 5 MG TAB PO SCH (07:57)
[2018-07-21 08:02] VITALS: BP 134/65; PULSE 89; TEMP 98
[2018-07-21] MEDS: HYDROcodone/APAP 5-325MG 1 EACH TAB PO PRN (11:42)
--- NOTE | 2018-07-21 13:08 | P.DS ---
Providers Date of admission: 07/17/18 09:33 Expected date of discharge: 07/21/18 Attending physician: Rigoberto Boyce Consults: 07/17/18 15:21 Consult Physician Routine Consulting Provider: Stephanie Mast Consult Reason/Comments: Medical management Do you want consulting provider notified?: Yes Primary care physician: Jackelyn Haynes Hospital Course: 73-year-old female who is status post right colectomy, lysis of adhesions, and partial omentectomy secondary to colon cancer. Patient is doing well postoperatively without any immediate complications. She is tolerating diet. Passing flatus and having bowel movements. Vital signs have remained stable. Her pain has been well-controlled. She is stable for discharge home today. Please see EMR for further hospital course details Discharge Diagnosis: 1. Colon cancer, s/p right colectomy Nurse practitioner note has been reviewed by physician. Signing provider agrees with the documented findings, assessment, and plan of care. Plan - Discharge Summary Discharge Rx Participant: No New Discharge Prescriptions: New Hydrocodone/Acetaminophen [Wiergate 5-325] 1 tab PO Q4HR PRN 3 Days #18 tab PRN Reason: Pain No Action amLODIPine [Norvasc] 5 mg PO BID Multivitamins, Thera [Multivitamin (formulary)] 1 tab PO DAILY Ferrous Sulfate [Iron] 325 mg PO DAILY Discharge Medication List Multivitamins, Thera [Multivitamin (formulary)] 1 tab PO DAILY 06/26/18 [History] amLODIPine [Norvasc] 5 mg PO BID 06/26/18 [History] Ferrous Sulfate [Iron] 325 mg PO DAILY 07/14/18 [History] Hydrocodone/Acetaminophen [Wiergate 5-325] 1 tab PO Q4HR PRN 3 Days #18 tab 07/21/18 [Rx] Follow up Appointment(s)/Referral(s): Jackelyn Haynes DO [Primary Care Provider] - 07/27/18 9:40 am Rigoberto Boyce MD [STAFF PHYSICIAN] - 07/28/18 3:50 pm Patient Instructions/Handouts: Colectomy (DC) Activity/Diet/Wound Care/Special Instructions: No driving while taking Wiergate No lifting over 10 pounds You may shower. No soaking or tub baths Very light activity until you are reevaluated at your follow up appointment with your surgeon
--- NOTE | 2018-07-23 02:21 | CDI ---
Documentation Clarification Form Date: 07/23/18 From: Corey Fuentes Phone: call to [phone] Admit Date: 07/17/2018 9:33:00 AM Patient Name: Karla Britton Visit Number: [id number] Discharge Date: 07/21/2018 2:58:00 PM ATTENTION: The Clinical Documentation Specialists (CDI) and [facility] Coding Staff appreciate your assistance in clarifying documentation. Please respond to the clarification below the line at the bottom and electronically sign. The CDI & [facility] Coding staff will review the response and follow-up if needed. Please note: Queries are made part of the Legal Health Record. If you have any questions, please contact the author of this message via ITS. Dr. Rigoberto Boyce The final diagnosis of the pathology report states: Two of 36 pericolic lymph nodes - positive for metastatic adenocarcinoma. In your professional opinion, do you concur with the pathology report specifying Lymph nodes as Adenocarcinoma and wish to add to final diagnosis for this patient? Yes No Other (please specify) Unable to determine No MTDD
--- NOTE | 2018-07-23 02:29 | PN ---
PROGRESS NOTE DATE OF SERVICE: 07/21/2018 This 73-year-old woman who was admitted after laparoscopic right colectomy, is improving significantly. No chest pain. No palpitations. No fever. PHYSICAL EXAM: Alert and oriented x3. Pulse is 89, blood pressure 130/60, respirations 16, temp 98 degrees, pulse ox 98% on room air. Conjunctivae normal. Oral mucosa moist. NECK: No jugular venous distention. No lymph node enlargement. CARDIOVASCULAR SYSTEM: S1, S2 muffled. RESPIRATORY SYSTEM: Breath sounds diminished at the bases. No rhonchi, no crackles. ABDOMEN: Soft, nontender. Soft. Status post surgery. LEGS: No edema. NEUROLOGIC: No focal deficits. LAB STUDIES: WBC 7.2, hemoglobin 9.5. ASSESSMENT: 1. Status post laparoscopic right colectomy. 2. Lysis of adhesions, right colon cancer with extensive adhesions. 3. Iron deficiency anemia present on admission. 4. Increased WBC, possibly reactive. 5. Hypertension. 6. History of hysterectomy. 7. History of degenerative joint disease. 8. History of postoperative nausea, vomiting. 9. Full code. RECOMMENDATIONS AND DISCUSSION: Continue current medications, continue to monitor, continue symptomatic treatment. Otherwise, as this time resume the home medications, follow closely with the primary physician in the outpatient setting after discharge. Further recommendations to follow. MMODL / IJN: [id number] /
== END 2018-07-21 14:58 | disposition home or self-care (01) | DRG 331 ==
LOC: 2ORMAIN 09:33 → EDSTATUS 12:00 → 4SSUR 14:46
PROVIDERS: ADMIT Surgery; ATTEND Surgery
PROC: 0DTF0ZZ Resection of Right Large Intestine, Open Approach (ICD-10-PCS; principal; 2018-07-17 12:30)
PROC: 0DNF0ZZ Release Right Large Intestine, Open Approach (ICD-10-PCS; principal; 2018-07-17 12:30)
PROC: 0DBU0ZZ Excision of Omentum, Open Approach (ICD-10-PCS; principal; 2018-07-17 12:30)
DX: C18.2 Malignant neoplasm of ascending colon (principal); D50.9 Iron deficiency anemia, unspecified; I10 Essential (primary) hypertension; M19.90 Unspecified osteoarthritis, unspecified site; Z90.49 Acquired absence of other specified parts of digestive tract; Z90.710 Acquired absence of both cervix and uterus; Z90.89 Acquired absence of other organs; Z80.3 Family history of malignant neoplasm of breast; Z79.899 Other long term (current) drug therapy; Z88.0 Allergy status to penicillin; Z88.2 Allergy status to sulfonamides; Z80.42 Family history of malignant neoplasm of prostate; Z80.8 Family history of malignant neoplasm of other organs or systems
CPT/HCPCS: 80048; 81003; 84132; 85025; 86850; 86900; 86901; 88309

== ENCOUNTER → 2018-08-21 | Outpatient (CLI) | payer MEDICARE ==
--- NOTE | 2018-08-24 08:15 | PE ---
EXAMINATION TYPE: PET CT fusion skull to thigh DATE OF EXAM: 08/21/2018 COMPARISON: CT abdomen and pelvis July 03, 2018 HISTORY: Colorectal cancer progress study. Had colon surgery July 17. TECHNIQUE: Following the intravenous administration of 11.217 mCi of F-18 FDG, whole body images are performed from the skull base to the midthigh. Images are reviewed on the computer in the coronal, axial, and sagittal planes. Reconstructed rotating images are created on independent workstation and reviewed on the computer. A noncontrast CT is performed in conjunction with the PET scan. SCAN: Subsequent Scan FINDINGS: SKULL BASE AND NECK: No areas of suspicious hypermetabolic uptake. Symmetric brown fat uptake is pre sent. CHEST, MEDIASTINUM, AND HILAR REGION: There are prominent subcentimeter and 1 cm thoracic lymph nodes with mild hypermetabolic uptake involving bilateral hilar region and mediastinum. Max SUV is 2.91 le ft hilar level axial image 89. Max SUV is 2.57 right hilar level axial image 93. Max SUV is 2.93 post erior AP window axial image 80. Max SUV is 2.95 pericarinal level axial image 80. No suspicious hypermetabolic nodules are present. Background mild emphysematous change with bibasilar mild to moderate linear scarring and/or atelectasis. Stable small pericardial effusion inferior aspe ct. ABDOMEN AND PELVIS: Surgical change from interval right-sided partial colectomy with new sutures axia l image 183 is identified. No areas of abnormal hypermetabolic uptake. OSSEOUS STRUCTURES: No areas of abnormal hypermetabolic uptake. OTHER CT: Uterus is surgically absent markedly atrophic. Sigmoid colonic diverticulosis is present. There is multilevel facet arthropathy in the lumbar spine. Slight scoliotic curvature is present. IMPRESSION: Interval resection of right colonic neoplasm. Nonspecific thoracic lymph nodes otherwise unremarkable PET/CT.
== END | disposition home or self-care (01) ==
LOC: RADPETMAIN 14:41
PROVIDERS: ATTEND Internal Medicine Hematology & Oncology
DX: C18.2 Malignant neoplasm of ascending colon (principal)
CPT/HCPCS: 78815; A9552

== ENCOUNTER 2018-08-24 06:22 | Day surgery (SDC) | payer MEDICARE ==
[~2018-08-24 06:22] MED LIST changes: -CLINDAMYCIN 900 MG in DEXTROSE 5% IN WATER 50 ML IVPB ONE; +DEXAMETHASONE SOD PHOSPHATE 10 MG/ML 1 ML VIAL IV ONE; -GENTAMICIN 300 MG in SODIUM CHLORIDE 0.9% 100 ML IVPB ONE; +HYDROmorphone 0.5 MG/0.5 ML SYRINGE IVP PRN; +LACTATED RINGERS 1,000 ML IV SCH; +MIDAZOLAM 2 MG/2 ML VIAL IV PRN; +Pre Op ABX Message 1 EACH MISC MISCELLANE ONE
[2018-08-24] MEDS: ONDANSETRON 4 MG/2 ML VIAL IVP ONE ×2 (06:53→09:23)
[2018-08-24] MEDS ORDERED: LIDOCAINE 1% 20 ML VIAL (10MG/ML) FOR IV START INTRADERMA ONE (06:53)
[2018-08-24] MEDS ORDERED: HEPARIN SODIUM,PORCINE 100 UNIT/ML 5 ML VIAL IV ONE ×2 (07:28→08:18)
[2018-08-24] MEDS ORDERED: BUPIVACAIN-EPI 0.5%-1:200,000 30 ML VIAL SQ ONE ×2 (07:28→08:18)
[2018-08-24] MEDS ORDERED: IOHEXOL 180 MG/ML 1 ML ML MISCELLANE ONE ×2 (07:28→08:18)
[2018-08-24] MEDS ORDERED: fentaNYL (PF) 50 MCG/ML 2 ML AMP ONE (07:50)
[2018-08-24] MEDS ORDERED: PROPOFOL 10 MG/ML 20 ML VIAL IV ONE (07:50)
[2018-08-24] MEDS ORDERED: KETAMINE 10 MG/ML 20 ML VIAL ONE (07:50)
[2018-08-24] MEDS ORDERED: MIDAZOLAM 2 MG/2 ML VIAL ONE (07:50)
--- NOTE | 2018-08-24 07:51 | P.GSHP ---
History of Present Illness H&P Date: 08/24/18 Chief Complaint: History of colon cancer This is a 73-year-old female who presents today for Port-A-Cath insertion. Patient has a recently diagnosed right colon cancer. Past Medical History Past Medical History: Cancer, Hypertension Additional Past Medical History / Comment(s): IRON DEFICIENCY ANEMIA, STATES CANCER MASS IN COLON., HX BLOOD IN STOOL. History of Any Multi-Drug Resistant Organisms: None Reported Past Surgical History: Appendectomy, Hysterectomy, Orthopedic Surgery, Tonsillectomy Additional Past Surgical History / Comment(s): HIP SURGERY AGE 12 R/T OSTEOMYELITIS., TUBAL SURGERY., VARICOSE VEINS. Past Anesthesia/Blood Transfusion Reactions: Postoperative Nausea & Vomiting (PONV) Additional Past Anesthesia/Blood Transfusion Reaction / Comment(s): HX OF BLOOD TRANSFUSION WITH TUBAL - NO REACTION. SISTER = PONV Past Psychological History: No Psychological Hx Reported Smoking Status: Never smoker Past Alcohol Use History: None Reported Past Drug Use History: None Reported - Past Family History Mother Family Medical History: Cancer Father Family Medical History: Cancer Sister(s) Family Medical History: Cancer Medications and Allergies Home Medications Medication Instructions Recorded Confirmed Type Multivitamins, Thera [Multivitamin 1 tab PO DAILY 06/26/18 08/24/18 History (formulary)] amLODIPine [Norvasc] 5 mg PO BID 06/26/18 08/24/18 History Ferrous Sulfate [Iron] 325 mg PO DAILY 07/14/18 08/24/18 History Allergies Allergy/AdvReac Type Severity Reaction Status Date / Time Penicillins Allergy Swelling Verified 08/20/18 09:05 Sulfa (Sulfonamide Allergy Unknown Verified 08/20/18 09:05 Antibiotics) Surgical - Exam Vital Signs Temp Pulse Resp BP Pulse Ox 97.9 F 105 H 16 154/72 98 08/24/18 06:44 08/24/18 06:44 08/24/18 06:44 08/24/18 06:44 08/24/18 06:44 - General well developed, well nourished, no distress - Eyes PERRL - ENT normal pinna - Neck no masses - Respiratory normal expansion - Cardiovascular Rhythm: regular - Abdomen Abdomen: soft, non tender Assessment and Plan Assessment: History of colon cancer. We'll perform Port-A-Cath placement.
[2018-08-24] MEDS ORDERED: SODIUM CHLORIDE 0.9% 50 ML with CLINDAMYCIN 600 MG IV ONE ×2 (08:17)
[2018-08-24 08:55] VITALS: TEMP 98
--- NOTE | 2018-08-24 08:56 | P.OP ---
Date of Procedure: 08/24/18 Preoperative Diagnosis: Colon cancer Postoperative Diagnosis: Colon cancer Procedure(s) Performed: Right subclavian Port-A-Cath Anesthesia: MAC Surgeon: Rigoberto Boyce Estimated Blood Loss (ml): 5 Pathology: none sent Condition: stable Disposition: PACU Description of Procedure: PROCEDURE: The patient was placed on the operating table in the supine position. She received MAC anesthetic. The [right] chest was prepped and draped in the usual sterile fashion. The skin underneath the right clavicle was anesthetized with 1% Xylocaine and using Seldinger technique, the right subclavian vein was cannulized. The wire was placed through the needle and positioned under fluoroscopy. Next, the needle was removed and the port site was anesthetized with 1% Xylocaine. Skin was incised with #15 blade and port pocket was made using blunt and sharp dissection. Following this the catheter was attached to the sport and the port was flushed. The port was positioned into the pocket site and was secured with 3-0 Vicryl suture. The catheter was then brought out through the wire site and then the dilator sheath was placed over the wire and the dilator and the wire were removed. The catheter was placed through the sheath and the sheath was removed. The port was flushed with hep-lock solution. Skin was closed with interrupted 3-0 Vicryl sutures. Steri-Strips were applied. The patient tolerated the procedure well. The patient was sent to recovery room for chest x-ray after the procedure.
--- NOTE | 2018-08-24 09:04 | FL ---
EXAMINATION TYPE: FL guided central line placemt DATE OF EXAM: 08/24/2018 FLUOROSCOPY Fluoroscopy time of 2 seconds was used during Port-A-Cath insertion. 1 image/s document/s the proced ure.
--- NOTE | 2018-08-24 09:04 | XR ---
EXAMINATION TYPE: XR chest 1V portable DATE OF EXAM: 08/24/2018 Comparison: None Clinical History: 73-year-old female line Placement Findings: Right anterior chest wall injection port with subclavian access and catheter tip at the mid SVC. Hear t upper limits of normal in size. Band of atelectasis in the retrocardiac region. No consolidation, p neumothorax, or pleural effusion. Impression: Right-sided injection port tip at the mid SVC level. Band of retrocardiac atelectasis.
[2018-08-24 09:53] VITALS: PULSE 76
[2018-08-24 10:13] VITALS: BP 135/74; RESP 18
== END 2018-08-24 10:59 | disposition home or self-care (01) ==
LOC: OR 06:22
PROVIDERS: ATTEND Surgery
DX: C18.2 Malignant neoplasm of ascending colon (principal); I10 Essential (primary) hypertension; D50.9 Iron deficiency anemia, unspecified; Z79.899 Other long term (current) drug therapy; Z90.49 Acquired absence of other specified parts of digestive tract; Z88.0 Allergy status to penicillin; Z88.2 Allergy status to sulfonamides
CPT/HCPCS: 36561; 77001; 71045; C1788; J2250; J1644; J1642; J1100; Q9965; J2405; J3010; J2704

== ENCOUNTER → 2018-11-04 | Outpatient (CLI) | payer MEDICARE ==
--- NOTE | 2018-11-04 10:45 | US ---
EXAMINATION TYPE: US venous doppler duplex LE LT DATE OF EXAM: 11/04/2018 10:06 AM COMPARISON: NONE CLINICAL HISTORY: R22.42 Swelling left leg. Left lower leg swelling SIDE PERFORMED: Left TECHNIQUE: The lower extremity deep venous system is examined utilizing real time linear array sonog lisa with graded compression, doppler sonography and color-flow sonography. VESSELS IMAGED: External Iliac Vein (EIV) Common Femoral Vein Deep Femoral Vein Greater Saphenous Vein * Femoral Vein Popliteal Vein Small Saphenous Vein * Proximal Calf Veins (* superficial vessels) Left Leg: Appears negative for DVT IMPRESSION: 1. Left lower extremity ultrasound negative for deep venous thrombosis.
== END | disposition home or self-care (01) ==
LOC: RADUSWWP 09:42
PROVIDERS: ATTEND Internal Medicine Hematology & Oncology
DX: R22.42 Localized swelling, mass and lump, left lower limb (principal)

== ENCOUNTER → 2019-02-03 | Outpatient (CLI) | payer MEDICARE ==
[2019-02-03 13:49] LABS: African American GFR (CKD) >90 (>60 ml/min/1.73 sqM); Blood Urea Nitrogen 14 mg/dL (7-17); Non-African American GFR(CKD) >90 (>60 ml/min/1.73 sqM)
--- NOTE | 2019-02-03 16:06 | CT ---
EXAMINATION TYPE: CT ChestAbdPelvis w con DATE OF EXAM: 02/03/2019 INDICATION: Colon CA follow up COMPARISON: 08/21/2018 CT DLP: 550.4 mGycm CONTRAST: Performed with Oral Contrast and with IV Contrast, patient injected with 100 mL of Isovue 300. TECHNIQUE: Axial images at 5 mm thick sections. Reconstructed images in the coronal plane. Delayed images through the kidneys. FINDINGS: CT CHEST: Portion of the thyroid visualized is normal. No suspicious lung nodules or focal infiltrates are present. No enlarged mediastinal or hilar adenopathy is evident. Shotty lymphadenopathy is present. The ascending aorta diameter at the level of the main pulmonary artery is 3.1 cm. The main pulmonary artery diameter at the bifurcation is 2.[address] ABDOMEN: Liver: Normal Spleen: Normal Pancreas: Normal Adrenal glands: The adrenal glands are normal. Gallbladder: Normal Kidneys: No masses are evident. No hydronephrosis is present. No cysts are present. Delayed images were obtained through the kidneys, which remain unremarkable. There may be some mild malrotation and malpositioning of the right kidney. Aorta: Vascular calcification is within the aorta. Inferior vena cava: Normal. CT PELVIS: Loops of bowel within the abdomen and pelvis are normal. There are loops of bowel which are incom pletely distended or lack oral contrast limiting their evaluation. A few scattered diverticuli are wi thin the sigmoid colon. Anastomosis in the right lower quadrant appears normal. Appendix: Not identified. Urinary bladder: Normal. Genitourinary structures: Uterus is absent. Ovaries are not identified. Osseous structures: No suspicious lytic or sclerotic lesions. Small sclerotic areas in the superior r ight acetabulum. Facet degenerative changes at L5-S1. Suspicious CT changes on the current examination to correspond to the findings of the 08/21/2018 PET/C T are not evident. Monitoring with the PET/CT may be beneficial. IMPRESSIONS: 1. No suspicious changes to suggest recurrent or metastatic colon cancer.
== END | disposition home or self-care (01) ==
LOC: RADPROMAIN 12:59
PROVIDERS: ATTEND Internal Medicine Hematology & Oncology
DX: C18.2 Malignant neoplasm of ascending colon (principal)
CPT/HCPCS: 82565; 84520; 71260; 74177; 36415; J1642; Q9967

== ENCOUNTER → 2019-05-05 | Outpatient (CLI) | payer MEDICARE ==
[2019-05-05 11:40] LABS: African American GFR (CKD) >90 (>60 ml/min/1.73 sqM); Blood Urea Nitrogen 13 mg/dL (7-17); Non-African American GFR(CKD) 90 (>60 ml/min/1.73 sqM)
--- NOTE | 2019-05-05 14:39 | CT ---
EXAMINATION TYPE: CT ChestAbdPelvis w con DATE OF EXAM: 05/05/2019 INDICATION: hiatal hernia, colon cancer follow up COMPARISON: 02/03/2019 CT DLP: 491.2 mGycm CONTRAST: Performed with Oral Contrast and with IV Contrast, patient injected with 100 mL of Isovue 300. TECHNIQUE: Axial images at 5 mm thick sections. Reconstructed images in the coronal plane. Delayed images through the kidneys. FINDINGS: CT CHEST: Portion of the thyroid visualized is normal. No suspicious lung nodules or focal infiltrates are present. Appears be an enlarged pretracheal lymph node measuring 1.2 cm near the jose d. A left peribronchial lymph node measures 1.0 cm. These are slightly more prominent than the comparison study. Additional s hotty lymphadenopathy is present. No hilar adenopathy is evident. The ascending aorta diameter at the level of the main pulmonary artery is 2.2 cm. The main pulmonary artery diameter at the bifurcation is 2.[address] ABDOMEN: Liver: Normal Spleen: Normal Pancreas: Normal Adrenal glands: The adrenal glands are normal. Gallbladder: Normal Kidneys: No masses are evident. No hydronephrosis is present. No cysts are present. Delayed images were obtained through the kidneys, which remain unremarkable. Aorta: Vascular calcification is within the aorta. Inferior vena cava: Normal. CT PELVIS: Loops of bowel within the abdomen and pelvis are normal. There are loops of bowel which are incom pletely distended or lack oral contrast limiting their evaluation. Appendix: Normal as visualized. Urinary bladder: Normal. Genitourinary structures: Uterus is not identified. Adnexal regions are clear. Osseous structures: No suspicious lytic or sclerotic lesions. IMPRESSIONS: 1. Slightly more prominent enlarged lymphadenopathy within the mediastinum. Consider PET CT for reeva luation. 2. No additional suspicious changes to suggest metastatic or recurrent colon cancer.
== END | disposition home or self-care (01) ==
LOC: RADPROMAIN 10:11
PROVIDERS: ATTEND Internal Medicine Hematology & Oncology
DX: R59.1 Generalized enlarged lymph nodes (principal); C18.2 Malignant neoplasm of ascending colon; Z88.0 Allergy status to penicillin; Z88.2 Allergy status to sulfonamides
CPT/HCPCS: 82565; 84520; 71260; 74177; J1642; Q9967

== ENCOUNTER → 2019-07-05 | Outpatient (CLI) | payer MEDICARE ==
[2019-07-05 08:45] LABS: African American GFR (CKD) >90 (>60 ml/min/1.73 sqM); Blood Urea Nitrogen 12 mg/dL (7-17); Non-African American GFR(CKD) 88 (>60 ml/min/1.73 sqM)
--- NOTE | 2019-07-05 17:10 | CT ---
EXAMINATION TYPE: CT ChestAbdPelvis w con DATE OF EXAM: 07/05/2019 COMPARISON: CT May 05, [address] PET CT August 21, 2018. HISTORY: follow up to colon CA CT DLP: 651.7 mGycm. Automated Exposure Control for Dose Reduction was Utilized. CONTRAST: CT scan of the thorax, abdomen and pelvis is performed with oral and with IV Contrast, patient inject ed with 100 mL of Isovue 300. FINDINGS: LUNGS: Mild biapical and bibasilar linear scarring and atelectasis redemonstrated. No suspicious new greater than 5 mm noncalcified nodules or masses. There is no pleural effusion or pneumothorax seen. The tracheobronchial tree is patent. MEDIASTINUM: There are persistent prominent thoracic lymph nodes throughout the mediastinum and bilat eral hilar region. Majority subcentimeter or borderline corresponding to the mild hypermetabolic lymp h nodes on PET CT August 21, 2018. Largest for reference measures 1.3 x 1.2 cm in the AP window posteri flavio just anterior to descending aorta axial image 24 not significantly changed most recent CT. Lymph node suspected slightly larger versus PET/CT where it had hypermetabolic uptake axial image 78. No cardiomegaly or pericardial effusion is seen. Prominent right pulmonary artery 2.7 cm axial image 30 . For vessel origin from aortic arch which is normal variant. OTHER: Stable right subclavian Mediport catheter. LIVER/GB: Scattered subcentimeter hypodense lesion seen anteriorly in the left hepatic lobe stable fr om original CT with additional lesion posterior right hepatic lobe axial image 65 also stable. PANCREAS: No significant abnormality is seen. SPLEEN: No significant abnormality is seen. ADRENALS: No significant abnormality is seen. KIDNEYS: No significant abnormality is seen. BOWEL: Redemonstration of surgical changes from right-sided partial colectomy and small bowel anastom osis. Oral contrast reaches level of the proximal sigmoid colon on current study. No suspicious small or large bowel dilatation. GENITAL ORGANS: Uterus is surgically absent or markedly atrophic. LYMPH NODES: No greater than 1cm abdominal or pelvic lymph nodes are appreciated. OSSEOUS STRUCTURES: S-shaped scoliosis. Fairly moderate axial joint space loss in both hips. Stable n onspecific sclerotic focus right iliac bone coronal image 42 presumed benign unchanged from July 03, 2018 CT. Subchondral cystic change posterior right humeral head axial image 13. OTHER: No significant additional abnormality is seen. IMPRESSION: Borderline and slightly enlarged thoracic lymph nodes not significantly changed from most recent CT. No new suspicious mass or adenopathy noted.
== END | disposition home or self-care (01) ==
LOC: RADPROMAIN 08:07
PROVIDERS: ATTEND Internal Medicine Hematology & Oncology
DX: C18.2 Malignant neoplasm of ascending colon (principal); Z88.0 Allergy status to penicillin; Z88.2 Allergy status to sulfonamides
CPT/HCPCS: 82565; 84520; 71260; 74177; J1642; Q9967

== ENCOUNTER → 2019-10-12 | Outpatient (CLI) | payer MEDICARE ==
[2019-10-12 10:23] LABS: African American GFR (CKD) >90 (>60 ml/min/1.73 sqM); Blood Urea Nitrogen 14 mg/dL (7-17); Non-African American GFR(CKD) 90 (>60 ml/min/1.73 sqM)
--- NOTE | 2019-10-12 14:43 | CT ---
EXAMINATION TYPE: CT ChestAbdPelvis w con DATE OF EXAM: 10/12/2019 INDICATION: Follow up colon cancer COMPARISON: 07/05/2019 CT DLP: 586.1 mGycm CONTRAST: Performed with Oral Contrast and with IV Contrast, patient injected with 100 mL of Isovue 300. TECHNIQUE: Axial images at 5 mm thick sections. Reconstructed images in the coronal plane. Delayed images through the kidneys. FINDINGS: CT CHEST: Portion of the thyroid visualized is normal. No suspicious lung nodules or focal infiltrates are present. No enlarged mediastinal or hilar adenopathy is evident. The ascending aorta diameter at the level of the main pulmonary artery is 3.3 cm. The main pulmonary artery diameter at the bifurcation is 2.[address] ABDOMEN: Liver: Normal Spleen: Normal Pancreas: Normal Adrenal glands: The adrenal glands are normal. Gallbladder: Couple of tiny densities are within the dependent portion of the gallbladder. These coul d be small gallstones or polyps. Kidneys: There is malpositioning malrotation of the right kidney. No masses are evident. No hydroneph rosis is present. No cysts are present. Delayed images were obtained through the kidneys, which re main unremarkable. Aorta: Vascular calcification is within the aorta. Inferior vena cava: Normal. CT PELVIS: Appears be a prior right hemicolectomy. The anastomotic site in the right lower quadrant appears wide ly patent. Scattered diverticuli are within the sigmoid colon. No acute diverticulitis is evident. There are loops of bowel which are incompletely distended or lack oral contrast limiting their evalua tion. Appendix: Normal as visualized. Urinary bladder: Normal. Small cystocele may be present. Genitourinary structures: Uterus and ovaries are not identified. Osseous structures: No suspicious lytic or sclerotic lesions. Scoliosis is present. IMPRESSIONS: 1. No suspicious changes to suggest recurrent or metastatic colon cancer.
== END | disposition home or self-care (01) ==
LOC: RADPROMAIN 09:20
PROVIDERS: ATTEND Internal Medicine Hematology & Oncology
DX: C18.2 Malignant neoplasm of ascending colon (principal); Z88.0 Allergy status to penicillin; Z88.2 Allergy status to sulfonamides
CPT/HCPCS: 82565; 84520; 71260; 74177; J1642; Q9967

== ENCOUNTER → 2019-11-12 | Day surgery (SDC) | payer MEDICARE ==
[2019-11-10 10:15] VITALS: BMI 23.3
[~2019-11-12] MED LIST changes: -DEXAMETHASONE SOD PHOSPHATE 10 MG/ML 1 ML VIAL IV ONE; -HEPARIN SODIUM,PORCINE 5,000 UNIT/ML 1 ML VIAL SQ ONE; -HYDROmorphone 0.5 MG/0.5 ML SYRINGE IVP PRN; +LACTATED RINGERS 1,000 ML IV ONE; +LIDOCAINE 1% (10MG/ML) FOR IV START INTRADERMA PRN; -MIDAZOLAM 2 MG/2 ML VIAL IV PRN; +PROPOFOL 10 MG/ML 20 ML VIAL IV ONE; -Pre Op ABX Message 1 EACH MISC MISCELLANE ONE
[2019-11-12 08:47] VITALS: TEMP 97.4
--- NOTE | 2019-11-12 09:28 | P.GSHP ---
History of Present Illness H&P Date: 11/12/19 Chief Complaint: History of colon cancer This a 74-year-old female who has a. History of right colon cancer. Patient rents today for colonoscopy. She denies a significant GI complaints. Past Medical History Past Medical History: Cancer, Hypertension Additional Past Medical History / Comment(s): IRON DEFICIENCY ANEMIA, STATES CANCER MASS IN COLON-Dx June 2018 last dose chemo Jan 2019 no radiation. " [facility] E[facility] STATES SHE HAS A PORT THAT WAS USED FOR CHEMO" History of Any Multi-Drug Resistant Organisms: None Reported Past Surgical History: Appendectomy, Bowel Resection, Hysterectomy, Orthopedic Surgery, Tonsillectomy Additional Past Surgical History / Comment(s): HIP SURGERY AGE 12 R/T OSTEOMYELITIS., TUBAL SURGERY., VARICOSE VEINS. Past Anesthesia/Blood Transfusion Reactions: Family History of Problems w/ Anesthesia, Postoperative Nausea & Vomiting (PONV) Additional Past Anesthesia/Blood Transfusion Reaction / Comment(s): HX OF BLOOD TRANSFUSION WITH TUBAL - NO REACTION. SISTER = PONV Past Psychological History: No Psychological Hx Reported Smoking Status: Never smoker Past Alcohol Use History: None Reported Past Drug Use History: None Reported - Past Family History Mother Family Medical History: Cancer Father Family Medical History: Cancer Sister(s) Family Medical History: Cancer Medications and Allergies Home Medications Medication Instructions Recorded Confirmed Type Multivitamins, Thera [Multivitamin 1 tab PO DAILY 06/26/18 11/10/19 History (formulary)] amLODIPine [Norvasc] 5 mg PO QAM 06/26/18 11/10/19 History Allergies Allergy/AdvReac Type Severity Reaction Status Date / Time Penicillins Allergy Swelling Verified 11/10/19 10:08 Sulfa (Sulfonamide Allergy Unknown Verified 11/10/19 10:08 Antibiotics) Surgical - Exam Vital Signs Temp Pulse Resp BP Pulse Ox 97.4 F L 83 18 170/78 97 11/12/19 08:46 11/12/19 08:46 11/12/19 08:46 11/12/19 08:46 11/12/19 08:46 - General well developed, well nourished, no distress - Eyes PERRL - ENT normal pinna - Neck no masses - Respiratory normal expansion - Cardiovascular Rhythm: regular - Abdomen Abdomen: soft, non tender Assessment and Plan Assessment: History of right colon cancer. We'll perform colonoscopy.
--- NOTE | 2019-11-12 09:38 | P.OP ---
Date of Procedure: 11/12/19 Preoperative Diagnosis: History of colon cancer Postoperative Diagnosis: History of colon cancer Diverticulosis No evidence of recurrent colon cancer Procedure(s) Performed: Colonoscopy Anesthesia: MAC Surgeon: Rigoberto Boyce Pathology: none sent Condition: stable Disposition: PACU Description of Procedure: The patient's placed on the endoscopy table lateral position. She received IV sedation. Digital rectal exam was performed which revealed no ebonized. The flexible colonoscope was then placed patient anus and passed throughout the entire colon. The patient appears right colectomy. The ileocolonic anastomosis visualized. The transverse colon appeared normal. In the descending and sigmoi d colon is mild diverticular changes. Scope was then brought back the rectum and this appeared normal. Scope was withdrawn for patient.
[2019-11-12 09:43] VITALS: RESP 17
[2019-11-12 09:53] VITALS: BP 156/69; PULSE 79
== END | disposition home or self-care (01) ==
LOC: ORWHC2ENDO 08:27
PROVIDERS: ATTEND Surgery
DX: Z08 Encounter for follow-up examination after completed treatment for malignant neoplasm (principal); Z85.038 Personal history of other malignant neoplasm of large intestine; K57.30 Diverticulosis of large intestine without perforation or abscess without bleeding; D50.9 Iron deficiency anemia, unspecified; I10 Essential (primary) hypertension; I83.90 Asymptomatic varicose veins of unspecified lower extremity; Z92.21 Personal history of antineoplastic chemotherapy; Z90.49 Acquired absence of other specified parts of digestive tract; Z90.710 Acquired absence of both cervix and uterus; Z90.89 Acquired absence of other organs; Z98.890 Other specified postprocedural states; Z79.899 Other long term (current) drug therapy; Z88.0 Allergy status to penicillin; Z88.2 Allergy status to sulfonamides; Z80.9 Family history of malignant neoplasm, unspecified
CPT/HCPCS: 45378; J2704

== ENCOUNTER → 2020-01-06 | Outpatient (CLI) | payer MEDICARE ==
[2020-01-06 10:44] LABS: African American GFR (CKD) >90 (>60 ml/min/1.73 sqM); Blood Urea Nitrogen 14 mg/dL (7-17); Non-African American GFR(CKD) 79 (>60 ml/min/1.73 sqM)
--- NOTE | 2020-01-06 14:02 | CT ---
EXAMINATION TYPE: CT ChestAbdPelvis w con DATE OF EXAM: 01/06/2020 COMPARISON: 10/12/2019, 07/05/2019 HISTORY: 74-year-old female follow up colon cancer TECHNIQUE: Contiguous axial scanning of the chest, abdomen, and pelvis performed with IV Contrast, pa tient injected with 100 mL of Isovue 300. Delayed images through the kidneys were obtained. Coronal/s agittal reconstructions performed. CT DLP: 1251 mGycm Automated exposure control for dose reduction was used. FINDINGS: CHEST: Right anterior chest wall injection port with catheter tip at the upper SVC. Heart upper limits of normal in size. Small basilar pericardial effusion is unchanged. Aorta normal caliber with very direct takeoff of the left vertebral artery directly from the aortic a rch. Lower right paratracheal lymph node measures 1.1 cm, unchanged. Left tracheobronchial angle lymph nod e measures 1 cm, similar to 07/05/2019. No definite new or progressive mediastinal lymph nodes. Strandy atelectasis in the lower lungs. No consolidation or pleural effusion. ABDOMEN: Stable small cysts within the left hepatic lobe. One within the posterior right liver lobe. Portal ve nous system is patent. No biliary ductal dilatation. Gallbladder, adrenal glands, kidneys, spleen, and pancreas appear within normal limits. Similar patul ous mid right ureter. Scattered mild atherosclerotic calcifications abdominal aorta and common iliac arteries. No dilated small bowel, free fluid, free air. No mesenteric or retroperitoneal lymphadenopathy. Post surgical change of partial right hemicolectomy with ileocolonic anastomosis near the hepatic fle xure. Oral contrast progressed to the distal sigmoid colon and upper rectum. Moderate stool within th e rectum. Distal sigmoid diverticulosis. No pericolonic inflammatory change. PELVIS: Bladder urine distended. Left-sided pelvic phleboliths. Uterus surgically absent. Neither ovary clear ly visualized. No abnormal fluid collection in the pelvis or pelvic lymphadenopathy seen. BONES: Osteitis pubis. Mild degenerative change of the chest. Anterior endplate spondylosis midthoracic spin e. No osseous destructive process seen. IMPRESSION: 1. A COUPLE NONSPECIFIC MEDIASTINAL LYMPH NODES REMAIN BORDERLINE TO MILDLY ENLARGED MEASURING UP TO 1.1 CM. SUSPECT A REACTIVE OR POSTINFLAMMATORY ETIOLOGY. 2. STATUS POST PARTIAL RIGHT HEMICOLECTOMY AND OTHERWISE WITHOUT EVIDENCE FOR METASTATIC DISEASE.
== END | disposition home or self-care (01) ==
LOC: RADCTMAIN 09:41
PROVIDERS: ATTEND Internal Medicine Hematology & Oncology
DX: R59.0 Localized enlarged lymph nodes (principal); C18.2 Malignant neoplasm of ascending colon; Z90.49 Acquired absence of other specified parts of digestive tract; Z88.0 Allergy status to penicillin; Z88.2 Allergy status to sulfonamides
CPT/HCPCS: 82565; 84520; 71260; 74177; 36415; Q9967

== ENCOUNTER → 2020-05-04 | Outpatient (CLI) | payer MEDICARE ==
[2020-05-04 12:01] LABS: African American GFR (CKD) >90 (>60 ml/min/1.73 sqM); Blood Urea Nitrogen 14 mg/dL (7-17); Non-African American GFR(CKD) 86 (>60 ml/min/1.73 sqM)
--- NOTE | 2020-05-04 13:48 | CT ---
EXAMINATION TYPE: CT ChestAbdPelvis w con DATE OF EXAM: 05/04/2020 COMPARISON: Most recent CT January 06, 2020 and older CTs. PET/CT August 21, 2018. HISTORY: Colon cancer. CT DLP: 658.7 mGycm. Automated Exposure Control for Dose Reduction was Utilized. CONTRAST: CT scan of the thorax, abdomen and pelvis is performed with IV Contrast, patient injected with 100 mL of Isovue M300. FINDINGS: LUNGS: Mild bibasilar and biapical linear scarring redemonstrated. No new suspicious greater than 5 m m pulmonary nodules or masses. There is no pleural effusion or pneumothorax seen. The tracheobronch ial tree remains patent. MEDIASTINUM: There are stable prominent but subcentimeter thoracic lymph nodes greatest in the AP win alma axial image [address] No definitive new greater than 1.0 cm lymph nodes are present . A right tracheobronchial lymph node is stable at 10 x 10 mm axial image 25 from most recent No per icardial effusion is seen. Stable Mild cardiomegaly. OTHER: Stable right subclavian Mediport catheter. LIVER/GB: No significant abnormality is appreciated. PANCREAS: No significant abnormality is seen. SPLEEN: No significant abnormality is seen. ADRENALS: No significant abnormality is seen. KIDNEYS: No significant abnormality is seen. BOWEL: Proximal partial colectomy changes redemonstrated. Occasional diverticula in sigmoid colon aga in seen. Oral contrast reaches the sigmoid colon level. No suspicious small or large bowel dilatation . GENITAL ORGANS: Uterus surgically absent. Occasional scattered pelvic phlebolith. LYMPH NODES: No greater than 1cm abdominal or pelvic lymph nodes are appreciated. OSSEOUS STRUCTURES: There is S-shaped scoliosis redemonstrated. Moderate anterior spurring midthoraci c spine. Stable tiny sclerotic focus right iliac bone coronal image 37 presumed benign. Facet arthrop athy lower lumbar levels. OTHER: Mild calcified plaque abdominal aorta extends into branch vessels. IMPRESSION: Stable borderline thoracic lymph nodes. No new or enlarging masses or lymph nodes identif ied to suggest active neoplastic recurrence.
== END | disposition home or self-care (01) ==
LOC: RADCTMAIN 11:19
PROVIDERS: ATTEND Internal Medicine Hematology & Oncology
DX: C18.2 Malignant neoplasm of ascending colon (principal); Z88.0 Allergy status to penicillin; Z88.2 Allergy status to sulfonamides
CPT/HCPCS: 82565; 84520; 71260; 74177; 36415; Q9967 ×2

== ENCOUNTER → 2020-09-06 | Outpatient (CLI) | payer MEDICARE ==
[~2020-09-06] MED LIST changes: -LACTATED RINGERS 1,000 ML IV ONE; -LACTATED RINGERS 1,000 ML IV SCH; -LIDOCAINE 1% (10MG/ML) FOR IV START INTRADERMA PRN; -PROPOFOL 10 MG/ML 20 ML VIAL IV ONE; +diphenhydrAMINE 50 MG CAP PO STA
[2020-09-06 10:54] LABS: African American GFR (CKD) >90 (>60 ml/min/1.73 sqM); Blood Urea Nitrogen 13 mg/dL (7-17); Non-African American GFR(CKD) 88 (>60 ml/min/1.73 sqM)
[2020-09-06 12:52] VITALS: RESP 16
[2020-09-06 13:18] VITALS: BP 161/81; PULSE 84
--- NOTE | 2020-09-07 17:03 | CT ---
EXAMINATION TYPE: CT ChestAbdPelvis w con DATE OF EXAM: 09/06/2020 INDICATION: Follow up colon cancer. COMPARISON: 05/04/2020 CT DLP: 576.1 mGycm CONTRAST: Performed with Oral Contrast and with IV Contrast, patient injected with 100 mL of Isovue 300. TECHNIQUE: Axial images at 5 mm thick sections. Reconstructed images in the coronal plane. Delayed images through the kidneys. FINDINGS: CT CHEST: Portion of the thyroid visualized is normal. No suspicious lung nodules or focal infiltrates are present. No enlarged mediastinal or hilar adenopathy is evident. There are some small pretracheal lymph nodes present. The ascending aorta diameter at the level of the main pulmonary artery is 2.2 cm. The main pulmonary artery diameter at the bifurcation is 0.7 minimal pericardial fluid may be present. cm. CT ABDOMEN: Liver: Appear to be scattered hepatic cysts within the left lobe liver. These were present previously Spleen: Normal Pancreas: Atrophic Adrenal glands: The adrenal glands are normal. Gallbladder: Normal Kidneys: No masses are evident. No hydronephrosis is present. No cysts are present. Delayed images were obtained through the kidneys, which remain unremarkable. Aorta: Vascular calcification is within the aorta. Inferior vena cava: Normal. CT PELVIS: Loops of bowel within the abdomen and pelvis are normal. There are loops of bowel which are incom pletely distended or lack oral contrast limiting their evaluation. A few diverticula are within the d istal sigmoid colon. There may be some thickening of the antrum of the stomach. This is likely relate d to peristalsis., Series 3 image 76 with a more open appearance on series 5 image 36 no suspicious a nastomosis narrowing is identified. There appears to be a right hemicolectomy. Appendix: Not identified. This could be postsurgical in nature Urinary bladder: Normal. Genitourinary structures: Uterus and ovaries are not identified. Osseous structures: No suspicious lytic or sclerotic lesions. Some sclerotic changes are within the s coliotic midthoracic spine may be degenerative in nature. IMPRESSIONS: 1. No suspicious changes to suggest metastatic or recurrent colon cancer.
== END | disposition home or self-care (01) ==
LOC: RADPROMAIN 09:54
PROVIDERS: ATTEND Internal Medicine Hematology & Oncology
DX: K76.89 Other specified diseases of liver (principal); K86.89 Other specified diseases of pancreas; K57.30 Diverticulosis of large intestine without perforation or abscess without bleeding
CPT/HCPCS: 82565; 84520; 71260; 74177; 36415; Q9967

== ENCOUNTER 2020-12-01 09:13 | Day surgery (SDC) | payer MEDICARE ==
[2020-11-29 12:08] VITALS: BMI 24.1
[~2020-12-01 09:13] MED LIST changes: +LACTATED RINGERS 1,000 ML IV SCH; -diphenhydrAMINE 50 MG CAP PO STA
[2020-12-01 09:38] VITALS: TEMP 98.9
[2020-12-01] MEDS ORDERED: PROPOFOL 10 MG/ML 20 ML VIAL IV ONE (10:11)
[2020-12-01] MEDS ORDERED: GLYCOPYRROLATE 0.2 MG/ML 2 ML VIAL ONE (10:11)
--- NOTE | 2020-12-01 10:17 | P.GSHP ---
History of Present Illness H&P Date: 12/01/20 Chief Complaint: History of right colon cancer This a 75-year-old female with a previous history of right colon cancer. She presents today for colonoscopy Past Medical History Past Medical History: Cancer, Hypertension, Thyroid Disorder Additional Past Medical History / Comment(s): IRON DEFICIENCY ANEMIA, STATES CANCER MASS IN COLON., HX BLOOD IN STOOL. History of Any Multi-Drug Resistant Organisms: None Reported Past Surgical History: Appendectomy, Bowel Resection, Hysterectomy, Orthopedic Surgery, Tonsillectomy Additional Past Surgical History / Comment(s): HIP SURGERY AGE 12 R/T OSTEOMYELITIS., TUBAL SURGERY., VARICOSE VEINS. COLONOSCOPY, Past Anesthesia/Blood Transfusion Reactions: Postoperative Nausea & Vomiting (PONV) Additional Past Anesthesia/Blood Transfusion Reaction / Comment(s): HX OF BLOOD TRANSFUSION WITH TUBAL - NO REACTION. SISTER = PONV Smoking Status: Never smoker - Past Family History Mother Family Medical History: Cancer Father Family Medical History: Cancer Sister(s) Family Medical History: Cancer Medications and Allergies Home Medications Medication Instructions Recorded Confirmed Type Multivitamins, Thera [Multivitamin 1 tab PO DAILY 06/26/18 11/29/20 History (formulary)] amLODIPine [Norvasc] 5 mg PO QAM 06/26/18 11/29/20 History Thyroid,Pork [Tank Washer Thyroid] 30 mg PO DAILY 11/29/20 11/29/20 History Allergies Allergy/AdvReac Type Severity Reaction Status Date / Time Iodinated Contrast Media Allergy Rash/Hives Verified 12/01/20 09:33 Penicillins Allergy Swelling Verified 12/01/20 09:33 Sulfa (Sulfonamide Allergy Unknown Verified 12/01/20 09:33 Antibiotics) Childhood Surgical - Exam Vital Signs Temp Pulse Resp BP Pulse Ox 98.9 F 60 18 196/88 99 12/01/20 09:37 12/01/20 09:37 12/01/20 09:37 12/01/20 09:37 12/01/20 09:37 - General well developed, well nourished, no distress - Eyes PERRL - ENT normal pinna - Neck no masses - Respiratory normal expansion - Cardiovascular Rhythm: regular - Abdomen Abdomen: soft, non tender Assessment and Plan Assessment: History of right colon cancer. We'll perform colonoscopy.
--- NOTE | 2020-12-01 10:34 | P.OP ---
Date of Procedure: 12/01/20 Preoperative Diagnosis: History of right colon cancer Postoperative Diagnosis: Normal colonoscopy status post right colectomy Procedure(s) Performed: Colonoscopy Anesthesia: MAC Surgeon: Rigoberto Boyce Pathology: none sent Condition: stable Disposition: PACU Description of Procedure: The patient's placed on the endoscopy table in the lateral position. She received IV sedation per digital rectal exam was performed which revealed no abnormalities. The flexible colonoscope was then placed patient anus and passed throughout the entire colon. The patient appears right collecting. The ileocolonic anastomosis visualized. The transverse colon descending colon and sigmoid colon appeared normal. Scope was brought back the rectum and this appeared normal. Scope was withdrawn for patient.
[2020-12-01 10:50] VITALS: BP 121/67; PULSE 94; RESP 20
== END 2020-12-01 11:23 | disposition home or self-care (01) ==
LOC: ORWHC2ENDO 09:13
PROVIDERS: ATTEND Surgery
DX: Z08 Encounter for follow-up examination after completed treatment for malignant neoplasm (principal); Z85.038 Personal history of other malignant neoplasm of large intestine; Z90.49 Acquired absence of other specified parts of digestive tract; I10 Essential (primary) hypertension; D50.9 Iron deficiency anemia, unspecified; E07.9 Disorder of thyroid, unspecified; Z80.9 Family history of malignant neoplasm, unspecified; Z88.0 Allergy status to penicillin; Z88.2 Allergy status to sulfonamides; Z91.041 Radiographic dye allergy status
CPT/HCPCS: 45378; J2704

== ENCOUNTER → 2021-01-10 | Outpatient (CLI) | payer MEDICARE ==
[2021-01-10 11:43] LABS: African American GFR (CKD) >90 (>60 ml/min/1.73 sqM); Blood Urea Nitrogen 16 mg/dL (7-17); Non-African American GFR(CKD) >90 (>60 ml/min/1.73 sqM)
[2021-01-10 12:50] VITALS: RESP 18
[2021-01-10 13:32] VITALS: BP 151/73; PULSE 76
--- NOTE | 2021-01-10 16:14 | CT ---
EXAMINATION TYPE: CT ChestAbdPelvis w con DATE OF EXAM: 01/10/2021 INDICATION: Colon cancer follow up. COMPARISON: 09/06/2020 CT DLP: 645.7 mGycm CONTRAST: Performed with Oral Contrast and with IV Contrast, patient injected with 100 mL of Isovue M300. TECHNIQUE: Axial images at 5 mm thick sections. Reconstructed images in the coronal plane. Delayed images through the kidneys. FINDINGS: CT CHEST: Portion of the thyroid visualized is normal. No suspicious lung nodules or focal infiltrates are present. No enlarged mediastinal or hilar adenopathy is evident. There are a few small scattered pretracheal l ymph nodes. The ascending aorta diameter at the level of the main pulmonary artery is 3.0 cm. The main pulmonary artery diameter at the bifurcation is 2.[address] ABDOMEN: Liver: Normal Spleen: Normal Pancreas: Mildly atrophic Adrenal glands: The adrenal glands are normal. Gallbladder: Normal Kidneys: No masses are evident. No hydronephrosis is present. No cysts are present. Delayed images were obtained through the kidneys, which remain unremarkable. Some right renal ectopia is present wi th the right kidney extending into the superior right hemipelvis. Aorta: Vascular calcification is within the aorta. Inferior vena cava: Normal. CT PELVIS: Loops of bowel within the abdomen and pelvis are normal. There are loops of bowel which are incom pletely distended or lack oral contrast limiting their evaluation. Appendix: Not visualized. Urinary bladder: Normal. Genitourinary structures: Uterus and ovaries are not identified. Osseous structures: No suspicious lytic or sclerotic lesions. Contrast reaction: Patient was premedicated appropriately. Following the contrast patient developed h tr including the back of the neck along the abdomen and possibly the foot. Monitoring was performed . This resolved spontaneously. Discharge instructions were provided to the patient with explicit inst ructions to immediately return to the emergency room if delayed symptoms should return. IMPRESSIONS: 1. No suspicious changes to suggest recurrent or metastatic lung cancer. 2. Contrast reaction: Patient was premedicated and developed hives following the injection.
== END ==
LOC: RADCTMAIN 10:46
PROVIDERS: ATTEND Internal Medicine Hematology & Oncology
DX: C18.9 Malignant neoplasm of colon, unspecified (principal)
CPT/HCPCS: 82565; 84520; 71260; 74177; 36415; Q9967

== ENCOUNTER → 2021-06-15 | Outpatient (CLI) | payer MEDICARE ==
--- NOTE | 2021-06-15 15:44 | MR ---
EXAMINATION TYPE: MR brain wo/w con DATE OF EXAM: 06/15/2021 COMPARISON: NONE HISTORY: Hx of Colon CA TECHNIQUE: Multiplanar, multisequence images of the brain and brainstem is performed without and with IV contras t, utilizing 7ml mL intravenous Gadavist . FINDINGS: Diffusion weighted images demonstrate no evidence of a recent infarct or other diffusion ab normality. There is no extra-axial fluid collection or significant white matter signal abnormality. The ventricular system and cisternal spaces are normal in size and appearance. The brain volume is age appropriate. Midline structures demonstrate normal morphology. The craniocervical junction appears within normal limits. Post contrast images demonstrate no abnormal enhancement. The dural venous sinuses appear pa tent. The visualized sinuses are clear and the globes are intact. IMPRESSION: No enhancing masses to suggest metastatic disease to the brain. Unremarkable study.
--- NOTE | 2021-06-17 22:34 | CT ---
EXAMINATION TYPE: CT ChestAbdPelvis wo con DATE OF EXAM: 06/15/2021 COMPARISON: Most recent CT January 10, 2021 and older studies HISTORY: Follow up for colon cancer. CT DLP: 1261 mGycm. Automated Exposure Control for Dose Reduction was Utilized. TECHNIQUE: CT scan of the thorax, abdomen and pelvis is performed with oral but without without IV contrast. FINDINGS: LUNGS: Mild bibasilar and biapical linear scarring redemonstrated. No new suspicious greater than 5 m m pulmonary nodules or masses. There is no pleural effusion or pneumothorax seen. The tracheobronch ial tree remains patent. MEDIASTINUM: There are stable prominent but subcentimeter thoracic lymph nodes greatest in the AP win alma axial image 24 from most recent CTs. No definitive new greater than 1.0 cm lymph nodes are presen t. A right tracheobronchial lymph node is stable at 10 x 10 mm axial image 24 from most recent CTs. N o pericardial effusion is seen. Heart size upper limits of normal. For vessel origin from aortic arch is redemonstrated. OTHER: Stable right subclavian Mediport catheter. LIVER/GB: No significant abnormality is appreciated. PANCREAS: No significant abnormality is seen. SPLEEN: No significant abnormality is seen. ADRENALS: No significant abnormality is seen. KIDNEYS: No significant abnormality is seen. BOWEL: Surgical changes near the cecum anteriorly redemonstrated. Diverticula in sigmoid colon again seen. Oral contrast reaches the rectum on current study. No suspicious small or large bowel dilatatio n. GENITAL ORGANS: Uterus surgically absent. Occasional scattered left-sided pelvic phleboliths. LYMPH NODES: No greater than 1cm abdominal or pelvic lymph nodes are appreciated. OSSEOUS STRUCTURES: There is S-shaped scoliosis redemonstrated. Mild to moderate anterior spurring mi dthoracic spine. Stable tiny sclerotic focus right iliac bone coronal image 40 presumed benign. Facet arthropathy lower lumbar levels. OTHER: Mild calcified plaque abdominal aorta extends into branch vessels. IMPRESSION: Stable borderline thoracic lymph nodes. No new or enlarging masses or lymph nodes identif ied to suggest active neoplastic recurrence.
== END | disposition home or self-care (01) ==
LOC: RADMRIMAIN 14:31
PROVIDERS: ATTEND Internal Medicine Hematology & Oncology
DX: K57.30 Diverticulosis of large intestine without perforation or abscess without bleeding (principal); Z85.038 Personal history of other malignant neoplasm of large intestine
CPT/HCPCS: 71250; 74176; 70553; A9585

== ENCOUNTER 2021-11-20 08:15 | Day surgery (SDC) | payer MEDICARE ==
[2021-11-19 08:28] VITALS: BMI 23.3
[~2021-11-20 08:15] MED LIST changes: +LIDOCAINE 1% (10MG/ML) FOR IV START INTRADERMA PRN
[2021-11-20 08:58] VITALS: TEMP 98.1
[2021-11-20] MEDS ORDERED: LACTATED RINGERS 1,000 ML IV ONE (08:58)
[2021-11-20] MEDS ORDERED: LIDOCAINE 2% INJ 20 MG/ML (2 ML VIAL) ONE (09:25)
[2021-11-20] MEDS ORDERED: ONDANSETRON 4 MG/2 ML VIAL ONE (09:25)
[2021-11-20] MEDS ORDERED: GLYCOPYRROLATE 0.2 MG/ML 2 ML VIAL ONE (09:25)
[2021-11-20] MEDS ORDERED: PROPOFOL 10 MG/ML 20 ML VIAL IV ONE (09:25)
--- NOTE | 2021-11-20 09:42 | P.PCN ---
Date of Procedure: 11/20/21 Procedure(s) Performed: BRIEF HISTORY: Patient is a 76-year-old pleasant white female scheduled for an elective colonoscopy as a part of surveillance of colorectal neoplasia diagnosed in November 2018 for which she underwent right hemicolectomy. She denies any symptoms. PROCEDURE PERFORMED: Colonoscopy. PREOPERATIVE DIAGNOSIS:History of colon cancer diagnosed in November 2018. IV sedation per Anesthesia. PROCEDURE: After informed consent was obtained, the patient, was brought into the endoscopy unit. IV sedation was administered by Anesthesia under continuous monitoring. Digital rectal examination was normal. Initially the Olympus CF-160 flexible video colonoscope was then inserted in the rectum, gradually advanced into theright colon with ileocolic anastomosis was visualized and appeared normal. Prep was fair. Mucosa of the, ascending colon, transverse colon, descending colon, sigmoid colon, and rectum appeared normal. Retroflexion was performed in the rectum and no lesions were seen. scattered sigmoid diverticulosis seen. the patient tolerated the procedure well. IMPRESSION: Normal-appearing colon from rectum toright colon with normal ileocolic anastomosis Scattered sigmoid diverticulosis. RECOMMENDATIONS: Findings of this examination were discussed with the patientas well as a family. She was advised to have a repeat surveillance colonoscopy in 3 years from now because of the prior history of colon cancer.].
[2021-11-20 10:06] VITALS: RESP 15
[2021-11-20 10:23] VITALS: BP 150/66; PULSE 84
== END 2021-11-20 10:41 | disposition home or self-care (01) ==
LOC: ORWHC2ENDO 08:15
PROVIDERS: ATTEND Internal Medicine Gastroenterology
DX: Z12.11 Encounter for screening for malignant neoplasm of colon (principal); K57.30 Diverticulosis of large intestine without perforation or abscess without bleeding; Z85.038 Personal history of other malignant neoplasm of large intestine; I10 Essential (primary) hypertension; Z98.0 Intestinal bypass and anastomosis status; Z88.0 Allergy status to penicillin; Z88.2 Allergy status to sulfonamides; Z91.041 Radiographic dye allergy status; Z79.899 Other long term (current) drug therapy
CPT/HCPCS: J2405; J2704; J2001; G0105; 45378

== ENCOUNTER → 2021-12-18 | Outpatient (CLI) | payer MEDICARE ==
--- NOTE | 2021-12-18 13:06 | CT ---
EXAMINATION TYPE: CT ChestAbdPelvis wo con DATE OF EXAM: 12/18/2021 COMPARISON: 06/15/2021, 1121 HISTORY: 76-year-old female C18.2, malignant neoplasm of ascending colon, colon ca TECHNIQUE: Contiguous axial scanning of the chest, abdomen, and pelvis without IV contrast. Coronal a nd sagittal reconstructions performed. CT DLP: 442.50 mGycm Automated exposure control for dose reduction was used. FINDINGS: CHEST: Heart normal size with trace pericardial fluid, unchanged. Aorta normal caliber with conventional dressing branching anatomy. Right anterior chest wall injection port with catheter tip at the upper SVC. Borderline to mildly enlarged caliber to the main right and left pulmonary arteries measuring up to 2 .7 cm may reflect underlying pulmonary hypertension. Scattered mediastinal lymph nodes are noted measuring up to 1.1 cm at the level of the AP window and pericarinal region, and is unchanged. No new or progressive thoracic lymphadenopathy seen. Strandy atelectasis or scarring in the lower lungs. No consolidation or pleural effusion. ABDOMEN: Noncontrast images of the liver show a similar 6 mm hypodense lesion left liver lobe suggesting benig n cyst. Abnormal gallbladder distention. Noncontrast appearance of the adrenal glands, kidneys, spleen, and pancreas show no gross abnormality . No dilated small bowel, free fluid, or free air. No mesenteric or retroperitoneal lymphadenopathy. Postsurgical change along the right side of the colon with anastomosis along the anterior right lower quadrant. No abnormal mass or lymphadenopathy is identified. Sigmoid diverticulosis. No pericolonic inflammatory change. Oral contrast progressed to the rectum. PELVIS: Bladder not distended. Uterus surgically absent. Neither ovary clearly delineated. A couple left-side d pelvic phleboliths. No abnormal fluid collection the pelvis or pelvic lymphadenopathy. BONES: Mild degenerative change at the hips. Bone fragment anterior left hip likely relates to old avulsion injury. Facet arthropathy lower lumbar spine. Mild degenerative disc disease midthoracic spine. No os seous destructive process. IMPRESSION: PRIOR SURGERY ON THE RIGHT SIDE OF THE COLON. A FEW BORDERLINE SIZED MEDIASTINAL LYMPH NODES REMAIN U NCHANGED. POSSIBLE UNDERLYING PULMONARY ARTERIAL HYPERTENSION. SIGMOID DIVERTICULOSIS. NO EVIDENCE FO R RECURRENT OR METASTATIC DISEASE.
== END | disposition home or self-care (01) ==
LOC: RADCTMAIN 11:35
PROVIDERS: ATTEND Internal Medicine Hematology & Oncology
DX: C18.2 Malignant neoplasm of ascending colon (principal); K57.30 Diverticulosis of large intestine without perforation or abscess without bleeding
CPT/HCPCS: 71250; 74176

== ENCOUNTER → 2022-06-25 | Outpatient (CLI) | payer MEDICARE ==
--- NOTE | 2022-06-25 21:53 | CT ---
EXAMINATION TYPE: CT ChestAbdPelvis wo con DATE OF EXAM: 06/25/2022 INDICATION: follow up for colon ca COMPARISON: 12/18/2021 CT DLP: 513.6 mGycm CONTRAST: Performed with Oral Contrast TECHNIQUE: Axial images at 5 mm thick sections. Reconstructed images in the coronal plane. Delayed images through the kidneys. FINDINGS: CT CHEST: Portion of the thyroid visualized is normal. No suspicious lung nodules or focal infiltrates are present. There is a 1.0 cm pretracheal lymph node which is stable from comparison. The ascending aorta diameter at the level of the main pulmonary artery is 3.4 cm. The main pulmonary artery diameter at the bifurcation is 2.[address] ABDOMEN: Liver: Normal Spleen: Normal Pancreas: Normal Adrenal glands: The adrenal glands are normal. Gallbladder: Normal Kidneys: No masses are evident. No hydronephrosis is present. No cysts are present. No renal stone s are evident. Aorta: Vascular calcification is within the aorta. Inferior vena cava: Normal. CT PELVIS: Loops of bowel within the abdomen and pelvis are normal. There is prior colonic surgery. There are loops of bowel which are incompletely distended or lack oral contrast limiting their evaluation. Appendix: Not identified. No dilated tubular structure or inflammatory change evident. Urinary bladder: Decompressive Limited evaluation Genitourinary structures: Uterus and ovaries not identified. Osseous structures: No suspicious lytic or sclerotic lesions. IMPRESSIONS: 1. Stable CT chest abdomen pelvis. A 1 cm pretracheal lymph node is unchanged. 2. No suspicious changes to suggest metastatic or recurrent colon neoplasm.
== END | disposition home or self-care (01) ==
LOC: RADCTMAIN 09:49
PROVIDERS: ATTEND Internal Medicine Hematology & Oncology
DX: Z03.89 Encounter for observation for other suspected diseases and conditions ruled out (principal); C18.2 Malignant neoplasm of ascending colon
CPT/HCPCS: 71250; 74176

== ENCOUNTER → 2022-12-20 | Outpatient (CLI) | payer MEDICARE ==
--- NOTE | 2022-12-20 14:09 | CT ---
EXAMINATION TYPE: CT ChestAbdPelvis wo con DATE OF EXAM: 12/20/2022 COMPARISON: 06/25/2022 HISTORY: colon ca CT DLP: 1273 mGycm. Automated Exposure Control for Dose Reduction was Utilized. TECHNIQUE: CT scan of the thorax, abdomen and pelvis is performed without IV contrast. FINDINGS: CT chest: The lungs are clear of consolidative, interstitial or masslike density. There are no suspicious lung nodules. The great vessels chest are normal. There are multiple borderline enlarged lymph nodes in the mediast inum. There are no enlarged hilar or axillary lymph nodes. No focal osseous abnormalities are seen within the bony thorax. There is a Mediport catheter on the right tip of which is in the SVC. CT abdomen and pelvis: Evaluation for metastatic disease to the liver is markedly limited due to lack of IV contrast adminis tration which was requested by the referring physician. There is no organomegaly involving the solid visceral organs of the upper abdomen. There are no gallstones. There are no renal calcifications or hydronephrosis. The caliber the abdominal aorta is normal is no retroperitoneal adenopathy or hemorrhage. Patient is status post right hemicolectomy. There is diverticulosis of the left colon but no acute di verticulitis. There is no bowel obstruction. There is no free intraperitoneal air or fluid. There is no pelvic mass or adenopathy. There are surgical absence of the uterus. No focal osseous lesions are seen. IMPRESSION: 1. No acute cardiopulmonary disease. Borderline lymph nodes within the mediastinum unchanged compared to previous. 2. Right hemicolectomy and diverticulosis of the left colon. 3. Limited evaluation for metastatic disease given the lack of IV contrast described above. 4. No focal osseous lesions.
== END | disposition home or self-care (01) ==
LOC: RADCTMAIN 10:27
PROVIDERS: ATTEND Internal Medicine Hematology & Oncology
DX: C18.2 Malignant neoplasm of ascending colon (principal); I10 Essential (primary) hypertension; D50.9 Iron deficiency anemia, unspecified; K57.30 Diverticulosis of large intestine without perforation or abscess without bleeding; Z90.49 Acquired absence of other specified parts of digestive tract
CPT/HCPCS: 71250; 74176

== ENCOUNTER → 2023-06-20 | Outpatient (CLI) | payer MEDICARE ==
--- NOTE | 2023-06-25 11:07 | CT ---
EXAMINATION TYPE: CT ChestAbdPelvis wo con DATE OF EXAM: 06/20/2023 COMPARISON: 12/20/2022 HISTORY: colon CA CT DLP: 577.9mGycm Unenhanced CT of the Chest, Abdomen and Pelvis Unenhanced CT of the chest ,abdomen and pelvis is performed. The lack of intravenous contrast limits evaluation of the solid and hollow viscera. Oral contrast: Yes CT Chest: LUNGS: Basilar linear parenchymal scarring. The lungs are clear and free of infiltrate or atelectasis . No pulmonary nodule or mass is detected. No pleural effusion or CT evidence of interstitial lung disease. MEDIASTINUM: Thoracic aorta is of normal caliber. The heart is not enlarged. No evidence for media stinal mass or adenopathy. HILAR STRUCTURES: No evidence for mass. No hilar adenopathy is appreciated. OTHER: MediPort catheter is unchanged in position. CONTRAST CT ABDOMEN AND PELVIS: LIVER/GB: No calcified gallstones. No space occupying hepatic lesion. Biliary tree is of normal ca liber. PANCREAS: No inflammation. No distinct mass. SPLEEN: No splenic enlargement. No lesion seen. ADRENALS: No nodule. No thickening. KIDNEYS/BLADDER: No hydronephrosis. No nephrolithiasis. No disctinct renal mass. BOWEL: Right hemicolectomy changes noted. Surgical anastomosis appears stable and unremarkable. No ev idence recurrent or residual mass. Small and large bowel is visualized. Normal caliber. Sigmoid diver ticulosis without diverticulitis. GENITAL ORGANS: No gross abnormality. LYMPH NODES: No greater than 1cm abdominal or pelvic lymph nodes are appreciated. AORTA: No significant abnormality. OSSEOUS STRUCTURES: No significant abnormality is seen. OTHER: No significant additional abnormality is seen. IMPRESSION: 1. Right hemicolectomy changes without evidence recurrent or residual disease. No metastatic disease visualized on this unenhanced study.
== END | disposition home or self-care (01) ==
LOC: RADCTMAIN 09:04
PROVIDERS: ATTEND Internal Medicine Hematology & Oncology
DX: C18.2 Malignant neoplasm of ascending colon (principal); D50.9 Iron deficiency anemia, unspecified; I10 Essential (primary) hypertension
CPT/HCPCS: 71250; 74176

== ENCOUNTER → 2023-12-17 | Outpatient (CLI) | payer MEDICARE ==
[2023-12-17 11:27] LABS: African American GFR (CKD) >90 (>60 ml/min/1.73 sqM); Blood Urea Nitrogen 16 mg/dL (7-17); Non-African American GFR(CKD) 86 (>60 ml/min/1.73 sqM)
--- NOTE | 2023-12-17 12:44 | CT ---
EXAMINATION TYPE: CT ChestAbdPelvis w con CT DLP: 696.8 mGycm, Automated exposure control for dose reduction was used. DATE OF EXAM: 12/17/2023 12:24 PM COMPARISON: Multiple CT chest abdomen pelvis with most recent 06/20/2023 CLINICAL INDICATION:Female, 78 years old with history of C18.2 COLON CANCER; PHH, f/u colon ca Technique: Multiple axial images of the chest, abdomen, and pelvis were obtained following the intrav enous administration of 100 mL Isovue-300. Oral contrast was administered. Two-dimensional coronal an d sagittal reconstructions were obtained. Findings: CHEST: LUNGS/ PLEURA: No pleural effusion, pneumothorax, focal consolidation. Mild bibasilar and biapical li near scarring reduction. No new suspicious pulmonary nodule or mass. AIRWAY: Patent and unremarkable.. HEART: Cardiomegaly is demonstrated. Trace pericardial effusion. MEDIASTINUM: Stable mildly prominent mediastinal lymph nodes. VASCULATURE: No aortic aneurysm. Four-vessel aortic arch. Mild atherosclerotic calcification of the aorta and its branches. Right chest wall subclavian approach Mediport catheter with distal tip in the high SVC. MUSCULOSKELETAL: No acute osseous abnormalities. No aggressive osseous lesion. Mild to moderate anter ior spurring of the midthoracic spine. SOFT TISSUES/LYMPH NODES: Unremarkable. LOWER NECK: No significant findings. ABDOMEN: ABDOMEN LIVER: Left hepatic lobe small cysts redemonstrated. GALLBLADDER AND BILE DUCTS: Unremarkable. PANCREAS: Unremarkable. SPLEEN: Unremarkable. ADRENAL GLANDS: Unremarkable. KIDNEYS AND URETERS: No evidence of hydronephrosis or renal calculus. The enhance symmetrically. PELVIS BLADDER: Incompletely distended but grossly unremarkable. REPRODUCTIVE: The uterus is surgically absent. ABDOMEN & PELVIS STOMACH AND BOWEL: Stomach and duodenum are unremarkable. Enteric contrast reaches the rectum. No foc al bowel wall thickening or surrounding inflammatory changes. Postsurgical changes near the cecum ant eriorly redemonstrated. Sigmoid colon diverticulosis. No evidence of bowel obstruction. PERITONEUM: No evidence of pneumoperitoneum or free fluid. VASCULATURE: Mild atherosclerotic calcifications are present throughout the abdominal aorta and its b ranches. Left-sided pelvic phleboliths. MUSCULOSKELETAL: No acute osseous abnormalities. No aggressive osseous lesion. S-shaped scoliosis are demonstrated. Facet arthropathy of the lower lumbar levels. Stable tiny sclerotic focus within the r ight iliac bone, presumably benign. Myositis ossificans identified within the soft tissues anterior t o the left iliac crest. LYMPH NODES: No evidence for lymphadenopathy. SOFT TISSUE/ABDOMINAL WALL: Unremarkable IMPRESSION: Post surgical changes from right hemicolectomy without evidence recurrent or residual disease. [facility] Lars Abraham, , 12/17/2023 12:42 PM
== END | disposition home or self-care (01) ==
LOC: RADPROMAIN 10:22
PROVIDERS: ATTEND Internal Medicine Hematology & Oncology
DX: C18.2 Malignant neoplasm of ascending colon
CPT/HCPCS: 36415; 71260; 74177; 82565; 84520

== ENCOUNTER 2024-01-09 06:12 | Day surgery (SDC) | payer MEDICARE ==
[2024-01-09 06:42] VITALS: TEMP 97.9
[2024-01-09 06:52] LABS: Glucose,Whole Blood 96 mg/dL (70-110)
[2024-01-09] MEDS: IV FLUID CONTINUATION 1,000 ML IV ONE ×2 (06:55→08:08)
[2024-01-09] MEDS: DEXAMETHASONE SOD PHOSPHATE 4 MG/ML 1 ML VIAL IV ONE (06:58)
[2024-01-09] MEDS: LACTATED RINGERS 1,000 ML IV SCH (06:58)
[2024-01-09] MEDS: ONDANSETRON 4 MG/2 ML VIAL IVP ONE (06:58)
[2024-01-09] MEDS: HEPARIN SODIUM,PORCINE 5,000 UNIT/ML 1 ML VIAL SQ PRN (06:58)
[2024-01-09] MEDS: ACETAMINOPHEN TAB 500 MG TAB PO PRN (06:58)
[2024-01-09] MEDS ORDERED: MIDAZOLAM 2 MG/2 ML VIAL IV PRN (07:00)
[2024-01-09] MEDS ORDERED: HYDROmorphone 0.5 MG/0.5 ML SYRINGE IVP PRN (07:00)
[2024-01-09] MEDS ORDERED: KETOROLAC 15 MG/ML 1 ML VIAL ONE (07:32)
[2024-01-09] MEDS ORDERED: PROPOFOL 10 MG/ML 20 ML VIAL IV ONE (07:32)
[2024-01-09] MEDS ORDERED: fentaNYL (PF) 50 MCG/ML 2 ML AMP ONE (07:32)
[2024-01-09] MEDS ORDERED: MIDAZOLAM 2 MG/2 ML VIAL ONE (07:32)
--- NOTE | 2024-01-09 07:35 | P.GSHP ---
History of Present Illness H&P Date: 01/09/24 Chief Complaint: History of colon cancer This a 78-year-old female presents today for removal of Port-A-Cath. Patient's previous history of colon cancer. Past Medical History Past Medical History: Cancer, Hypertension, Thyroid Disorder Additional Past Medical History / Comment(s): HX IRON DEFICIENCY ANEMIA, COLON CANCER (2019)- TREATED WITH SURGERY AND CHEMO. wears compression stocking to control swelling,diverticulitis. History of Any Multi-Drug Resistant Organisms: None Reported Past Surgical History: Appendectomy, Bowel Resection, Hysterectomy, Orthopedic Surgery, Tonsillectomy Additional Past Surgical History / Comment(s): HIP SURGERY AGE 12 R/T OSTEOMYELITIS., TUBAL SURGERY., VARICOSE VEINS. COLONOSCOPY. cat aracts removed Past Anesthesia/Blood Transfusion Reactions: Postoperative Nausea & Vomiting (PONV) Additional Past Anesthesia/Blood Transfusion Reaction / Comment(s): HX OF BLOOD TRANSFUSION WITH TUBAL - NO REACTION. SISTER & MOTHER= PONV Smoking Status: Never smoker - Past Family History Mother Family Medical History: Cancer Father Family Medical History: Cancer Sister(s) Family Medical History: Cancer Daughter(s) Family Medical History: Cancer Additional Family Medical History / Comment(s): cervical cancer- Medications and Allergies Home Medications Medication Instructions Recorded Confirmed Type amLODIPine [Norvasc] 10 mg PO QAM 06/26/18 01/09/24 History Thyroid,Pork [Tar Heater Thyroid] 30 mg PO DAILY 11/29/20 01/09/24 History Multivit with Calcium,Iron,Min 1 each PO DAILY 11/19/21 01/09/24 History [Women's Multivitamin] Alendronate Sodium [Fosamax] 70 mg PO MO 01/07/24 01/09/24 History Allergies Allergy/AdvReac Type Severity Reaction Status Date / Time Iodinated Contrast Media Allergy Severe Rash/Hives Verified 01/09/24 06:38 Penicillins Allergy Swelling Verified 01/09/24 06:38 Sulfa (Sulfonamide Allergy Unknown Verified 01/09/24 06:38 Antibiotics) Childhood Surgical - Exam Vital Signs Temp Pulse Resp BP Pulse Ox 97.9 F 91 18 171/74 98 01/09/24 06:36 01/09/24 06:36 01/09/24 06:36 01/09/24 06:36 01/09/24 06:36 - General well developed, well nourished, no distress - Eyes PERRL - ENT normal pinna - Neck no masses - Respiratory normal expansion - Cardiovascular Rhythm: regular - Abdomen Abdomen: soft, non tender Assessment and Plan Assessment: History of colon cancer. Will perform movable Port-A-Cath.
[2024-01-09] MEDS: LIDOCAINE 1%-EPI 1:100,000 20 ML VIAL SQ ONE ×2 (07:46→07:54)
--- NOTE | 2024-01-09 07:58 | P.OP ---
Date of Procedure: 01/09/24 Preoperative Diagnosis: History of colon cancer Postoperative Diagnosis: History of colon cancer Procedure(s) Performed: Removal of Port-A-Cath Anesthesia: WILLIE BRUCE Surgeon: Rigoberto Boyce Estimated Blood Loss (ml): 5 Pathology: none sent Condition: stable Disposition: PACU Description of Procedure: The patient was placed on the endoscopy table in the lateral position. She received IV sedation. Her chest wall was prepped draped you sterile fashion. The skin was incised at the port site. And then using blunt sharp/electrocautery the port was dissected free. The wound bed for hemostasis. There is no bleeding seen. The skin was then closed with interrupted 3-0 Monocryl suture. Dermabond dressing applied. Patient tolerated well. She was sent to recovery room in stable condition.
[2024-01-09 08:26] VITALS: BP 138/65; PULSE 72; RESP 16
[2024-01-09] MEDS: ONDANSETRON ODT 4 MG TAB PO STA (08:39)
== END 2024-01-09 09:01 | disposition home or self-care (01) ==
LOC: OR 06:12
PROVIDERS: ATTEND Surgery
DX: C18.2 Malignant neoplasm of ascending colon (principal); I10 Essential (primary) hypertension; E03.9 Hypothyroidism, unspecified; Z45.2 Encounter for adjustment and management of vascular access device; Z90.49 Acquired absence of other specified parts of digestive tract; Z90.710 Acquired absence of both cervix and uterus; Z91.041 Radiographic dye allergy status; Z88.2 Allergy status to sulfonamides; Z88.0 Allergy status to penicillin; Z88.1 Allergy status to other antibiotic agents; Z79.890 Hormone replacement therapy; Z79.899 Other long term (current) drug therapy
CPT/HCPCS: 36590; J2250; J1644; J1100; J0690; J2405; J3010; J1885; J2704